=== PATIENT | male | born 1955 | race Caucasian/White ===

== ENCOUNTER 2020-09-08 23:10 | Observation (INO) | payer BC, MEDICARE, SELFPAY ==
--- NOTE | 2020-09-08 23:25 | ECG_ITS ---
APPROVED REPORT Exam: Resting ECG HR:68 bpm ECG Measurements Heart Rate 68 AXES AK 158 P 45 QRSd 94 QRS 4 QT 390 T 67 QTc 414 Conclusion Normal sinus rhythm Normal ECG Electronically signed by : Torsten Torres, 09/09/2020 07:07:59
[2020-09-08 23:26] VITALS: BP 238/124; PULSE 66; RESP 16; TEMP 36.6; O2SAT 97; BMI 37.2
--- NOTE | 2020-09-08 23:33 | XR_ITS ---
PROCEDURE: XR CHEST PORTABLE CLINICAL HISTORY: shoulder pain Chest pain COMPARISON: CR CXR CHEST(2 VIEWS-NOT PORTABLE) from 05/23/2017 FINDINGS: The cardiomediastinal silhouette and pulmonary vascularity are within normal limits. The lungs are clear without infiltrates, suspicious nodules, or pleural effusions. There is a small sclerotic focus in the left humeral neck and may be due to a bone island. IMPRESSION: No acute findings. Dictated by: Doroteo Charles MD 09/09/2020 06:33 Doroteo Charles MD in [place] 09/09/2020 06:33
[2020-09-08 23:46] LABS: Basophils % 0.5 % (0.1-2.0); Eosinophils # 0.1 K/mm3 (0.0-0.4); Eosinophils % 1.9 % (0.1-12.0); Hematocrit 46.7 % (42.0-52.0); Hemoglobin 15.7 g/dL (14.1-18.0); Lymphocytes # 2.4 K/mm3 (0.7-4.5); Lymphocytes % 31.5 % (10-50); Mean Corpuscular HGB Conc 33.7 g/dL (31.8-35.4); Mean Corpuscular Hemoglobin 31.2 pg (27.0-31.2); Mean Corpuscular Volume 92.6 fl (80-94); Mean Platelet Volume 7.9 fl (7.4-10.4); Monocytes # 0.4 K/mm3 (0.1-1.0); Monocytes % 5.8 % (1.7-9.3); Neutrophils # 4.6 K/mm3 (1.8-7.8); Neutrophils % 60.3 % (37.0-80.0); Platelet Count 178 K/mm3 (142-424); Red Blood Count 5.04 M/mm3 (4.60-6.20); Red Cell Distribution Width 13.5 % (11.5-17.5); White Blood Count 7.6 K/mm3 (4.8-10.8)
[2020-09-08 23:49] LABS: Chloride 103 mmol/L (98-107); Potassium 4.5 mmoL/L (3.5-5.1); Sodium 141 mmol/L (136-145)
[2020-09-08 23:51] LABS: Bilirubin,Unconjugated 0.3 mg/dL (0.0-1.1); Blood Urea Nitrogen 37 mg/dl (9-20); Creatinine Clearance Estimated 102 mL/min (50-200); Estimated Glomerular Filt Rate 67 ml/min (>60); GFR (African American) 81 ML/MIN (>60)
[2020-09-08 23:52] LABS: Alanine Aminotransferase 56 U/L (12-78); Albumin Level 4.7 g/dl (3.5-5.0); Alkaline Phosphatase 108 U/L (38-126); Anion Gap 13.5 mEq/L (5-15); Aspartate Amino Transferase 39 U/L (17-59); Bilirubin,Direct 0.3 mg/dl (0.0-0.4); Bilirubin,Indirect 0.3 mg/dL (0.0-0.9); Bilirubin,Total 0.6 mg/dl (0.2-1.3); Calcium 9.4 mg/dl (8.4-10.2); Carbon Dioxide 29 mmol/L (22.0-30.0); Glucose 170 mg/dl (74-100); Total Protein,Serum 7.9 g/dl (6.3-8.2)
[2020-09-09] VITALS (12 sets, daily range): BP systolic 128–211; BP diastolic 56–118; PULSE 65–77; RESP 14–19; TEMP 36.6–36.8; O2SAT 94–99; BMI 37.3
[2020-09-09 00:01] LABS: NT Pro Brain Natriuretic Pep. 50.8 pg/mL (0-125)
[2020-09-09 00:07] LABS: Troponin I < 0.01 ng/ml (0.00-0.034)
[2020-09-09 00:10] LABS: Free T4 (Free Thyroxine) 1.24 ng/dl (0.78-2.19)
[2020-09-09 00:11] LABS: Coronavirus 19 IgG Antibody Positive (Negative); Coronavirus 19 IgM Antibody Negative (Negative)
[2020-09-09 00:35] LABS: Amylase 63 U/L (30-110)
[2020-09-09 00:36] LABS: Lipase 47 U/L (23-300)
[2020-09-09 00:41] LABS: C-Reactive Protein 1.1 mg/L (0-4)
[2020-09-09 00:43] LABS: Erythrocyte Sedimentation Rate 14 mm/hr (0-20)
--- NOTE | 2020-09-09 01:00 | HMH.EDCP ---
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 The time I documented below is in addition to time spent performing reported procedures but includes the following listed in this critical care notation. Medical Decision Making - Medical Records Medical records reviewed: Yes: I reviewed the patient's medical records. - Ted Inquiry Pt receiving controlled substance: No Vital Signs: 09/08/20 23:26 09/09/20 00:01 09/09/20 00:11 Temperature 97.8 F Temperature Source Oral Pulse Rate [Right Brachial] 66 66 70 Respiratory Rate 16 17 16 Blood Pressure [Right Arm] 238/124 H 195/101 H 176/95 H Blood Pressure Mean [Right Arm] 162 132 122 Blood Pressure Source [Right Arm] Manual Cuff/ Auscultation Automatic Cuff Blood Pressure Position [Right Arm] Sitting Sitting Sitting 02 Sat by Pulse Oximetry 97 96 94 L Oxygen Delivery Method Room Air Room Air Room Air 09/09/20 00:30 09/09/20 00:45 09/09/20 01:03 Temperature Temperature Source Pulse Rate [Right Brachial] 67 72 68 Respiratory Rate 17 17 16 Blood Pressure [Right Arm] 211/118 H 187/112 H 181/95 H Blood Pressure Mean [Right Arm] 149 137 123 Blood Pressure Source [Right Arm] Automatic Cuff Blood Pressure Position [Right Arm] Sitting Sitting Sitting 02 Sat by Pulse Oximetry 95 96 95 Oxygen Delivery Method Room Air Room Air Room Air 09/09/20 01:30 Temperature Temperature Source Pulse Rate [Right Brachial] 70 Respiratory Rate 14 Blood Pressure [Right Arm] 152/89 H Blood Pressure Mean [Right Arm] 110 Blood Pressure Source [Right Arm] Automatic Cuff Blood Pressure Position [Right Arm] Sitting 02 Sat by Pulse Oximetry 98 Oxygen Delivery Method Room Air - Lab Data Lab results reviewed: Yes: I reviewed the patient's lab results. Lab Results 09/08/20 23:30: WBC 7.6, RBC 5.04, Hgb 15.7, Hct 46.7, MCV 92.6, MCH 31.2, MCHC 33.7, RDW 13.5, Plt Count 178, MPV 7.9, Neut % (Auto) 60.3, Lymph % (Auto) 31.5, [place] % (Auto) 5.8, Eos % (Auto) 1.9, Baso % (Auto) 0.5, Neut # (Auto) 4.6, Lymph # (Auto) 2.4, [place] # (Auto) 0.4, Eos # (Auto) 0.1, Baso # (Auto) 0.0 09/08/20 23:30: Sodium 141, Potassium 4.5, Chloride 103, Carbon Dioxide 29, Anion Gap 13.5, BUN 37 H, Creatinine 1.10, Estimated Creat Clear 102, Estimated GFR 67, Est GFR ( Amer) 81, Glucose 170 H, Calcium 9.4, Total Bilirubin 0.6, Direct Bilirubin 0.3, Conjugated Bilirubin 0.0, Indirect Bilirubin 0.3, Unconjugated Bilirubin 0.3, AST 39, ALT 56, Alkaline Phosphatase 108, Troponin I < 0.01, Total Protein 7.9, Albumin 4.7, TSH 2.20 09/08/20 23:30: Free T4 1.24 09/08/20 23:30: SARS-CoV-2 IgG Ab (Rapid) Positive A, SARS-CoV-2 IgM Ab (Rapid) Negative 09/08/20 23:30: NT-Pro-B Natriuret Pep 50.8 09/09/20 00:00: ESR 14 09/09/20 00:00: C-Reactive Protein 1.1, Amylase 63 09/09/20 00:00: Lipase 47 Result diagrams: 09/08/20 23:30 09/08/20 23:30 Orders (Tests/Meds): ED MEDICATIONS Generic Name Dose Route Start Last Admin Trade Name Freq PRN Reason Stop Dose Admin Sodium Chloride 1,000 mls @ 999 mls/hr 09/08/20 23:45 09/08/20 23:54 Sod Chlor 0.9% 1000ml Bag IV 09/09/20 00:45 999 mls/hr .Q1H1M JOHN Administration Discontinued Medications Generic Name Dose Route Sta
--- NOTE | 2020-09-09 01:01 | ECG_ITS ---
APPROVED REPORT Exam: Resting ECG HR:65 bpm ECG Measurements Heart Rate 65 AXES PA 164 P 81 QRSd 88 QRS -10 QT 396 T 66 QTc 411 Conclusion Normal sinus rhythm Minimal voltage criteria for LVH, may be normal variant Borderline ECG Electronically signed by : Torsten Torres, 09/09/2020 07:07:52
--- NOTE | 2020-09-09 01:09 | PC.NURSE ---
paged dr koenig on-call for aimee. spoke with jade bartlett.
--- NOTE | 2020-09-09 01:09 | PC.NURSE ---
call placed to liberty
--- NOTE | 2020-09-09 01:21 | PC.NURSE ---
paged dr gaspar
--- NOTE | 2020-09-09 02:39 | PC.NURSE ---
Addendum entered by Cece Hunt CNA 09/09/20 03:14: CORRECTION ARRIVAL TIME TO FLOOR WAS [id number] Original Note: PT ARRIVED TO THE FLOOR VIA W/C FROM ED WITH STAFF AT 0287
[2020-09-09 03:41] LABS: Troponin I < 0.01 ng/ml (0.00-0.034)
[2020-09-09 06:25] LABS: Basophils % 0.4 % (0.1-2.0); Eosinophils # 0.2 K/mm3 (0.0-0.4); Eosinophils % 1.9 % (0.1-12.0); Hematocrit 43.4 % (42.0-52.0); Hemoglobin 14.4 g/dL (14.1-18.0); Lymphocytes # 1.8 K/mm3 (0.7-4.5); Lymphocytes % 22.5 % (10-50); Mean Corpuscular HGB Conc 33.3 g/dL (31.8-35.4); Mean Corpuscular Hemoglobin 30.9 pg (27.0-31.2); Mean Corpuscular Volume 92.8 fl (80-94); Mean Platelet Volume 8.1 fl (7.4-10.4); Monocytes # 0.5 K/mm3 (0.1-1.0); Monocytes % 6.2 % (1.7-9.3); Neutrophils # 5.6 K/mm3 (1.8-7.8); Platelet Count 178 K/mm3 (142-424); Red Blood Count 4.67 M/mm3 (4.60-6.20); Red Cell Distribution Width 13.4 % (11.5-17.5)
[2020-09-09 06:37] LABS: Magnesium 1.8 mg/dl (1.6-2.3)
[2020-09-09 07:03] LABS: Troponin I < 0.01 ng/ml (0.00-0.034)
--- NOTE | 2020-09-09 08:00 | CA_ITS ---
APPROVED REPORT EXAM: Comprehensive 2D, Doppler, and color-flow Echocardiogram Ict Support And Test Engineers: Angelia Martini CRT Ht: 5 ft 8 in Wt: 245lbs BSA: 2.23 BP: 152/89 mmHg Indications: Chest Pain, Diabetes, Hypertension/HDD, STENT 2016 2D Dimensions LVOT 1.99 cm (M/F) 1.5-2.5 M-Mode Dimensions RVDd 3.00 cm (0.9-2.6) LA Diam 3.85 cm (1.9-4.0) LVDd 4.44 cm (3.5-5.7) Ao Diam 3.89 cm (2.0-3.7) LVDs 3.40 cm (3.5-5.7) IVSd 1.76 cm (0.6-1.1) PWd 1.24 cm (0.6-1.1) EF (Teich) 47.10% FS 23.40% EDV (Teich) 89.60 mL ESV (Teich) 47.40 mL LV Diastology E Decel Time 220.00 (160-240 msec) E/A Ratio 0.93 MED E' 6.50 (< 7 cm/sec) MED A' 8.00 cm/s E'/MED E' Ratio 10.51 (>14) LAT E' 10.00 (<10 cm/sec) LAT A' 10.00 cm/s E/LAT E' Ratio 6.83 (>14) Aortic Valve AI PHT 444.00 ms AO Peak GR. 6.30 mmHg Mitral Valve MV A Velocity 74.00 (40-130 cm/s) E/A Ratio 0.93 MV Decel. Time 220.00 (160-240 ms) Pulmonary Valve PV Peak Velocity 108.00 (50-150 cm/s) Tricuspid Valve TR P. Velocity 225.00 cm/s RAP Estimate 10.00 mmHg RVSP 30.20 mmHg Left Ventricle Left atrium is mildly enlarged, left ventricle is normal size, mild concentric left ventricular hypertrophy, visually estimated ejection fraction 55% with no regional wall motion abnormality, grade 1 diastolic dysfunction seen without tissue Doppler evidence of raise left atrial pressure. Right Ventricle Right atrium and right ventricle are normal size and contractility. Aortic Valve Aortic valve is minimally thickened and fibrosed, there is no aortic stenosis, there is trace aortic insufficiency. Mitral Valve Mitral valve grossly normal, there is mild mitral regurgitation. Tricuspid Valve Tricuspid valve is grossly normal, there is trace tricuspid regurgitation, tricuspid regurgitation jet velocity is inadequate for calculation of the right ventricular systolic pressure. Pulmonic Valve Pulmonic valve is poorly visualized. Great Vessels Aortic root is normal size. Pericardium No significant pericardial effusion noted. Conclusion 1. Mildly enlarged left atrium, normal left ventricular size, mild concentric left ventricular hypertrophy, visually estimated ejection fraction 55% with no regional wall motion abnormality, grade 1 diastolic dysfunction seen without tissue Doppler evidence of raise left atrial pressure. 2. Thickened and calcified aortic valve without aortic stenosis, there is trace aortic insufficiency. 3. Trace mitral and tricuspid regurgitation. 4. No significant pericardial effusion noted. Electronically signed by : Luke Moya, 09/09/2020 20:47:39
--- NOTE | 2020-09-09 08:01 | P.CONPHA_ITS ---
[facility] Pharmacy VTE Monitoring - Patient Demographics Admission date: 09/09/20 Report Date: 09/09/20 Time: 08:01 Allergies/Adverse Reactions: Patient Allergies No Known Allergies Allergy (Verified 09/06/19 12:17) Height: 1.73 m Weight: 111.272 kg Patient Problems: Current Active Problems Angina at rest (Acute) Hypertensive urgency (Acute) Obesity (BMI 30-39.9) (Acute) Diabetes mellitus (Acute) - VTE Risk Labs: VTE Related Lab Results Hgb 14.4 g/dL (14.1-18.0) 09/09/20 05:45 Hct 43.4 % (42.0-52.0) 09/09/20 05:45 Plt Count 178 K/mm3 (142-424) 09/09/20 05:45 BUN 37 mg/dl (9-20) H 09/08/20 23:30 Creatinine 1.10 mg/dl (0.66-1.25) 09/08/20 23:30 Estimated Creat Clear 102 mL/min (50-200) 09/08/20 23:30 Was VTE Risk Assessment Performed: Yes VTE Score: 1 VTE Risk Level: Very Low Risk Clinical Trial Participant: No - Prophylaxis VTE Prophylaxis Ordered?: Yes Types of VTE Prophylaxis: TEDS Knee High
--- NOTE | 2020-09-09 08:04 | HMH.PHAINT ---
home medication list confirmed using list from home pharmacy
--- NOTE | 2020-09-09 08:59 | HMH.CNCARD ---
History of Present Illness Consult date: 09/09/20 Requesting physician: Elías Ramirez Consult reason: chest pain Chief complaint: left shoulder pain Additional Medical History:: 1. Angina at rest (09/09/20) a. Troponins negative b. Complains of left shoulder pain 2. Diabetes. a. Controlled 3. Hypertension a. Controlled 4. Coronary artery disease a. Stents placed by Dr. Ramirez in 2018 at [place] 5. Hyperlipidemia a. Patient is on a statin and and managed by PCP 6. Knee replacement a. 2018 History of present illness: 65-year-old male admitted to [facility] on 09/09/20 with angina at rest. Patient arrived in the emergency room around 1030 last evening complaining of left shoulder pain radiating down to the left elbow. Patient stated the left shoulder pain was just increasing when he was trying to rest last night. Patient stated after he received morphine for his pain, he was feeling much better. Patient denies chest pain, tightness or pressure. Shortness of breath with exertion. 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 Patient denies increased swelling of the lower extremities. Patient denies tobacco use. Patient admits to social drinking. Patient has history of diabetes. Patient states his diabetes have been controlled. History of hypertension which is controlled. History of hyperlipidemia which is controlled by statin. Patient does have history of coronary artery disease. Patient states last stenting was in [address] Ramirez in [place] in [facility]. States he has not seen Dr. Ramirez since 2018. Initial ED work-up was performed. Initial EKG normal sinus rhythm with a heart rate of 65 bpm. Serial troponins were negative. Lab was unremarkable. Chest x-ray showed no acute findings. Preliminary echocardiogram was performed this morning. Revealed LV greater than 50% with mild mitral regurgitation mild aortic valve regurgitation, mild TR. Discussed plan of care with Dr. Kan and Dr. Ramirez. Patient is feeling fine and states he would rather go home. Will obtain GXT Myoview stress test on an outpatient basis and have patient follow-up in 1 week. Continue home medications. Management of diabetes deferred to PCP. Management of hyperlipidemia deferred to PCP. Instructed patient to return to cardiac clinic if signs and symptoms develop or persist. Patient verbalized understanding. Thank you for allowing cardiology participate in the care of this patient. [facility] History I have reviewed the patient's past medical history: Yes Medical History: Reports:: Diabetes Mellitus Type 2, Hyperlipidemia, Hypertension *Have you ever received a pneumonia vaccine?: No *Have you received a flu vaccine this season?: No Other Medical History: Reports: Arthritis Laterality Cases: Right: Total Knee Replacement Other Surgeries: Yes: Cardiac Catheterization Fractures: Yes (leg) - *Social History Last grade of school completed: High school graduate Alcohol Intake: current Alcohol Intake Frequency:: holidays/special occasions only *Occupational Status:: employed *Travel in the last 8 weeks: None Family Hx:: Heart Attack Meds Home Medications Medication Instructions Recorded Confirmed Type Atorvastatin Calcium [Lipitor 80mg 80 mg PO DAILY 09/06/19 09/09/20 History Tablet] Metformin HCl 500 mg PO DAILY 09/06/19 09/09/20 History Metoprolol Tartrate [Lopressor 12.5 mg PO BID 09/06/19 09/09/20 History 25mg tablet] lisinopriL [Lisinopril 20mg Tab] 20 mg PO DAILY 09/06/19 09/08/20 History Acetaminophen [Tylenol 500mg 1,000 mg PO HS 09/09/20 09/09/20 History tablet] Aspirin [Aspirin 81mg chewable 81 mg PO DAILY 09/09/20 09/09/20 History tab] Celecoxib [Celebrex 200mg cap] 200 mg PO DAILY #30 cap 09/09/20 Rx Ergocalciferol (Vitamin D2) 50,000 units PO WEEKLY 09/09/20 09/09/20 History [Drisdol 50,000 units (1.25mg)
--- NOTE | 2020-09-09 09:48 | HMH.HPDC ---
General - General Admission date:: 09/09/20 Discharge date: 09/09/20 *Admission Date: 09/09/20 *Chief complaint: Left shoulder pain *History of present illness: Mr. Butler is a 65-year-old male patient with a history of coronary artery disease, hypertension, hyperlipidemia, and osteoarthritis who presented to the emergency room after persistent left shoulder discomfort radiating down to the upper arm. He states he has had this discomfort for about a week but it became worse the last 3 days. Last night was significantly worse and thus he presented to the ER He denies associated shortness of breath, diaphoresis, nausea, and radiation. He states the pain is just pain. 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 He notices it mostly at night at rest. In the emergency room initial blood pressure was 238/124 and decrease to 152/89 after pain resolution and receiving clonidine. He also received a liter of IV fluid bolus and was given aspirin, clonidine 0.1 mg, Ketorolac 30 mg IV and nitroglycerin. CBC was normal. Blood chemistries revealed normal electrolytes with a BUN of 31 and creatinine of 1.1. Blood sugar was 170. Liver function studies were normal. Troponin I was normal x2. Chest x-ray revealed no acute findings. He has had an echo with pending results. Patient did not sleep during the night and arrived to the room this morning. He states his left shoulder has minimal discomfort. He denies shortness of breath. [facility] History Medical History: Reports:: Coronary Artery Disease, Diabetes Mellitus Type 2, Hyperlipidemia, Hypertension *Have you ever received a pneumonia vaccine?: No *Have you received a flu vaccine this season?: No Other Medical History: Reports: Arthritis Laterality Cases: Right: Total Knee Replacement Other Surgeries: Yes: Cardiac Catheterization, Coronary Stent Fractures: Yes (leg) - *Social History Last grade of school completed: High school graduate Alcohol Intake: current Alcohol Intake Frequency:: holidays/special occasions only *Occupational Status:: employed Household Members: spouse *Travel in the last 8 weeks: None Family Hx:: Heart Attack Review of Systems - Constitutional Denies headache(s), Denies weakness - Eyes Denies change in vision - ENT Denies ear pain, Denies post nasal drip, Denies sore throat - *Cardiovascular Denies chest pain, Denies chest pain with activity, Denies excessive sweating, Denies shortness of breath, Denies irregular heart rhythm - *Respiratory Denies cough, Denies shortness of breath - *Gastrointestinal Denies abdominal pain, Denies constipation, Denies heartburn, Denies loose stools, Denies nausea, Denies vomiting - *Genitourinary Denies difficulty urinating - *Musculoskeletal Reports joint pain, Denies abnormal walking, Denies back pain, Denies limited joint movement, Denies body aches Comments: Left shoulder pain. Nontender to palpation. No pain with movement/range of motion. - *Neurologic Denies abnormal walking, Denies dizziness, Denies headache(s), Denies seizure-like activity Exam Vital signs and Labs for Last 24 Hours: Temp Pulse Resp BP Pulse Ox 98.3 F 70 18 128/72 98 09/09/20 08:00 09/09/20 08:00 09/09/20 08:00 09/09/20 08:00 09/09/20 08:00 Laboratory Results - last 24 hr 09/08/20 23:30: WBC 7.6, RBC 5.04, Hgb 15.7, Hct 46.7, MCV 92.6, MCH 31.2, MCHC 33.7, RDW 13.5, Plt Count 178, MPV 7.9, Neut % (Auto) 60.3, Lymph % (Auto) 31.5, [place] % (Auto) 5.8, Eos % (Auto) 1.9, Baso % (Auto) 0.5, Neut # (Auto) 4.6, Lymph # (Auto) 2.4, [place] # (Auto) 0.4, Eos # (Auto) 0.1, Baso # (Auto) 0.0 09/08/20 23:30: Sodium 141, Potassium 4.5, Chloride 103, Carbon Dioxide 29, Anion Gap 13.5, BUN 37 H, Creatinine 1.10, Estimated Creat Clear 102, Estimated GFR 67, Est GFR ( Amer) 81, Glucose 170 H, Calcium 9.4, Total Bilirubin 0.6, Direct Bilirubin 0.3, Conjugated Bilirubin 0.0, Indirect Bilirubin 0.3, Unconjugate
[2020-09-09 12:35] LABS: POC Glucose,Bedside 131 (70-110)
== END 2020-09-09 10:50 | disposition home or self-care (01) ==
LOC: ER 09-09 01:38 → 2ND 09-09 02:44
PROVIDERS: Admitting Provider Family Medicine; Emergency Provider Emergency Medicine; PCP Family Medicine; Visit Provider Family Medicine
DX: I16.0 Hypertensive urgency (principal); I10 Essential (primary) hypertension; I51.0 Cardiac septal defect, acquired; Z95.5 Presence of coronary angioplasty implant and graft; E11.9 Type 2 diabetes mellitus without complications; Z79.899 Other long term (current) drug therapy; Z79.84 Long term (current) use of oral hypoglycemic drugs; Z79.82 Long term (current) use of aspirin
CPT/HCPCS: 36415; 71045; 80048; 80076; 82150; 82962; 83690; 83735; 83880; 84439; 84443; 84484; 85025; 85651; 86140; 86328; 93005; 93306; 96365; 96375; 99284; G0378

== ENCOUNTER → 2020-09-22 06:51 | Outpatient (CLI) | payer BC, SELFPAY ==
--- NOTE | 2020-09-22 06:52 | NM_ITS ---
APPROVED REPORT Exam: Nuclear Stress Test Indication: Chest pain, CAD, HTN, DM, High cholesterol, Family history Patient Location: Outpatient Stress Tech: Shwetha Diez SC Tech:Pallavi Davalos, ARRT, RT (R)(N) Ht: 5 ft 8 in Wt: 240 lbs HR: 62 bpm BP: 153/80 mmHg BSA: 2.21 m2 BMI: 36.4 History: Chest pain, CAD, HTN, DM, High cholesterol, Family history Procedure: Patient received a 0.4 mg of intravenous Lexiscan, resting heart rate 62 bpm, resting blood pressure 153/80 mmHg, with Lexiscan maximum heart rate achived was 89 bpm which is Less than 85 % of the maximum predicted heart rate and blood pressure was 126/73 mmHg. With Lexiscan, patient denied any complaint of chest pain. Electrocardiogram Resting electrocardiogram shows sinus rhythm nonspecific ST-T changes, with Lexiscan less than 1.[address] segment depression noted from the baseline EKG. The EKG portion of the Lexiscan is nondiagnostic. Cardiac Stress and Resting SPECT Images: Cardiac Stress and Resting SPECT images were obtained using technetium 99m Myoview 29.4 mCi stress and 10.42 mCi at rest. Gated SPECT for analysis of segmental wall motion and calculation of the ejection fraction also done. Cardiac stress and resting SPECT images show uniform myocardial activity without segmental perfusion abnormality, computer derived ejection fraction 53% with no regional wall motion abnormality, right ventricle is mildly enlarged with normal contractility. Conclusion: 1. The EKG portion of the Lexiscan is nondiagnostic. 2. No scintigraphic evidence of reversible ischemia seen, computer derived ejection fraction is 53% with no regional wall motion abnormality, right ventricle is mildly enlarged with normal contractility. 3. Normal Lexiscan Myoview study. Electronically signed by : Luke Moya, 09/22/2020 22:15:57
--- NOTE | 2020-09-22 06:52 | CA_ITS ---
APPROVED REPORT Exam: Pharmacologic Technologist: Shwetha Diez Ht: 5 ft 8 in Wt: 240 lbs BSA: 2.21 m2 HR: 62 bpm BP: 153/80 mmHg Indications: Chest pain Medical History Medications: Lisinopril,,,,, Aspirin,,,,, Metoprolol,,,,, Metformin,,,,, Atorvastatin,,,,, Acetaminophen,,,,, Celecoxib,,,,, Vitamin D2,,,,, Stress Test Details Test: LEXISCAN HR Resting HR: 63 bpm Max Heart Rate (APMHR): 153 bpm Max HR Achieved: 93 bpm Target HR (85% APMHR): 130 bpm % of APMHR: 60 Recovery HR: 75 bpm BP Resting BP: 153.0/80.0 mmHg Max BP: 153.0/80.0 mmHg Recovery BP: 125.0/80.0 mmHg ECG Resting ECG: Sinus rhythm Clinical Exercise duration: 04:00 min Highest Stage Achieved: Stress ECG Conclusion Lexiscan portion completed. Patient complained of shortness of breath during peak infusion. Symptoms: Shortness of breath during peak infusion, resolved in recovery. No chest pain. Arrhythmias/Ectopy: No ectopy ST-T Changes: less than 1.[address] depression noted. Conclusion: Images to follow. Test Summary . . Cardiolite injected . . . Stop exercise at 04:00 . . . . Electronically signed by : Luke Moya, 09/22/2020 22:00:45
--- NOTE | 2020-09-22 09:09 | HMH.ITSHM ---
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 []LISINOPRIL METOPROLOL METFORMIN VITAMIN D2 ATORVASTATIN ASA
== END ==
PROVIDERS: PCP Family Medicine; Visit Provider Family Medicine
DX: R07.9 Chest pain, unspecified (principal)
CPT/HCPCS: 78452; 93017; A9502; J2785

== ENCOUNTER 2020-10-23 19:09 | Emergency (ER) | payer BC, SELFPAY ==
--- NOTE | 2020-10-23 19:17 | XR_ITS ---
PROCEDURE: XR CHEST PORTABLE CLINICAL HISTORY: htn Hypertension COMPARISON: CR CXR CHEST(2 VIEWS-NOT PORTABLE) from 05/23/2017 CR XR CHEST PORTABLE from 09/08/2020 FINDINGS: The cardiomediastinal silhouette and pulmonary vascularity are within normal limits. The lungs are clear without infiltrates, suspicious nodules, or pleural effusions. Sclerotic focus involves the left proximal humerus and may be due to bone island IMPRESSION: No acute findings. Dictated by: Doroteo Charles MD 10/24/2020 06:02 Doroteo Charles MD in [place] 10/24/2020 06:02
--- NOTE | 2020-10-23 19:17 | ECG_ITS ---
APPROVED REPORT Exam: Resting ECG HR:62 bpm ECG Measurements Heart Rate 62 AXES WV 170 P 49 QRSd 106 QRS 14 QT 390 T 34 QTc 395 Conclusion Sinus rhythm with premature atrial complexes Otherwise normal ECG Electronically signed by : Torsten Torres, 10/24/2020 08:52:24
[2020-10-23 19:28] VITALS: BP 203/103; PULSE 63; RESP 14; TEMP 36.8; O2SAT 98; BMI 35.7
--- NOTE | 2020-10-23 19:28 | HMH.EDGENADL ---
ED Disposition Clinical Impression: Elevated blood pressure reading Disposition: Home, Self-Care Condition on Discharge: Good Additional Instructions: You have been evaluated for elevated blood pressure reading. You have been evaluated for elevated blood pressure reading. Please start taking hydrochlorothiazide. Follow salt restriction. Try to exercise every day. Follow-up with your primary care doctor in 1 to 2 days for symptom recheck. Prescriptions: hydroCHLOROthiazide [HCTZ 12.5mg cap] 12.5 mg PO DAILY #30 cap Transmission Status: Pending to [facility] Referrals: Elías Ramirez MD [Primary Care Provider] - Time of Disposition: 21:05 - Critical Care Critical Care Time: No Attestation: On 10/23/20, the high probability of a clinically significant, sudden or life threatening deterioration of the following system(s) required my full and direct attention, intervention and personal management. The time I documented below is in addition to time spent performing reported procedures but includes the following listed in this critical care notation. Medical Decision Making - Medical Records Medical records reviewed: Yes: I reviewed the patient's medical records. - Ted Inquiry Pt receiving controlled substance: No Vital Signs: 10/23/20 19:28 Temperature 98.2 F Temperature Source Oral Pulse Rate [Right Brachial] 63 Respiratory Rate 14 Blood Pressure [Right Arm] 203/103 H Blood Pressure Mean [Right Arm] 136 Blood Pressure Source [Right Arm] Automatic Cuff Blood Pressure Position [Right Arm] Sitting 02 Sat by Pulse Oximetry 98 Oxygen Delivery Method Room Air - Lab Data Lab Results 10/23/20 19:25: WBC 6.9, RBC 4.92, Hgb 14.5, Hct 44.7, MCV 90.9, MCH 29.5, MCHC 32.5, RDW 12.9, Plt Count 209, MPV 7.7, Neut % (Auto) 52.2, Lymph % (Auto) 38.8, [place] % (Auto) 6.3, Eos % (Auto) 2.2, Baso % (Auto) 0.6, Neut # (Auto) 3.6, Lymph # (Auto) 2.7, [place] # (Auto) 0.4, Eos # (Auto) 0.2, Baso # (Auto) 0.0 10/23/20 19:25: Sodium 141, Potassium 4.2, Chloride 105, Carbon Dioxide 30, Anion Gap 10.2, BUN 27 H, Creatinine 0.80, Estimated Creat Clear 108, Estimated GFR 96, Est GFR ( Amer) 117, Glucose 157 H, Calcium 9.5, Total Bilirubin 0.5, AST 39, ALT 58, Alkaline Phosphatase 93, Troponin I < 0.01, Total Protein 7.8, Albumin 4.7, Globulin 3.1, Albumin/Globulin Ratio 1.5 10/23/20 19:28: POC Glucose 148 H 10/23/20 19:30: Urine Color Yellow, Urine Appearance Clear, Urine pH 6.0, Ur Specific [place] 1.025, Urine Protein Negative, Urine Glucose (UA) 1+, Urine Ketones Negative, Urine Blood Negative, Urine Nitrate Negative, Urine Bilirubin Negative, Urine Urobilinogen 1.0, Ur Leukocyte Esterase Negative, Urine RBC None, Urine WBC None, Ur Squamous Epith Cells None, Urine Bacteria None Result diagrams: 10/23/20 19:25 10/23/20 19:25 Orders (Tests/Meds): ED MEDICATIONS Discontinued Medications Generic Name Dose Route Start Last Admin Trade Name Sandipq PRN Reason Stop Dose Admin Aspirin 243 mg 10/23/20 19:47 10/23/20 19:50 Aspirin 81mg Chewable Tablet PO 10/23/20 19:48 243 mg ONCE ONE Administration Iopamidol 70 ml 10/23/20 20:35 10/23/20 20:36 Iopamidol-370 (76%);100ml Bottle IV 10/23/20 20:36 70 ml ONCE ONE Administration Sodium Chloride 50 ml 10/23/20 20:35 10/23/20 20:36 0.9 % Sodium Chloride 50 Ml Vial IV 10/23/20 20:36 50 ml ONCE ONE Administration Sodium Chloride 10 ml 10/23/20 20:35 10/23/20 20:36 Sodium Chloride 0.9% 10ml Syr (Rad Only) IV 10/23/20 20:36 10 ml ONCE ONE Administration ORDERS Category Date Time Status CTA Chest [CT angio chest] Stat Cat Scan 10/23/20 19:35 Taken CXR --portable [XR chest portable] Stat Exams 10/23/20 19:17 Taken Troponin I Q3H Lab 10/23/20 22:30 Ordered Troponin I Q3H Lab 10/24/20 01:30 Ordered EKG Request [ECG Request by /Nse] Stat Y 10/23/20 19:17 Ordered - ECG Data Tracing #1 Sinu
[2020-10-23 19:33] LABS: Basophils % 0.6 % (0.1-2.0); Eosinophils # 0.2 K/mm3 (0.0-0.4); Eosinophils % 2.2 % (0.1-12.0); Hematocrit 44.7 % (42.0-52.0); Hemoglobin 14.5 g/dL (14.1-18.0); Lymphocytes # 2.7 K/mm3 (0.7-4.5); Lymphocytes % 38.8 % (10-50); Mean Corpuscular HGB Conc 32.5 g/dL (31.8-35.4); Mean Corpuscular Hemoglobin 29.5 pg (27.0-31.2); Mean Corpuscular Volume 90.9 fl (80-94); Mean Platelet Volume 7.7 fl (7.4-10.4); Monocytes # 0.4 K/mm3 (0.1-1.0); Monocytes % 6.3 % (1.7-9.3); Neutrophils # 3.6 K/mm3 (1.8-7.8); Neutrophils % 52.2 % (37.0-80.0); Platelet Count 209 K/mm3 (142-424); Red Blood Count 4.92 M/mm3 (4.60-6.20); Red Cell Distribution Width 12.9 % (11.5-17.5); White Blood Count 6.9 K/mm3 (4.8-10.8)
--- NOTE | 2020-10-23 19:35 | CT_ITS ---
PROCEDURE: CT ANGIO CHEST CLINCIAL INDICATION: chest pain, to back, htn COMPARISON: No exams were available for comparison TECHNIQUE: IV Contrast: 70ML Isovue 370 Axial images obtained with sagittal and coronal reformats. All CT scans at the facility use one or more dose reduction, viz: automated exposure control, ma/kV adjustment per patient size (including targeted exams where dose is matched to indication, i.e. head), or iterative reconstruction technique. FINDINGS: HEART AND MEDIASTINAL STRUCTURES: No evidence of pulmonary embolus, aortic aneurysm, or aortic dissection. Coronary artery calcifications and/or stents noted. LUNGS AND PLEURAL SPACES: Motion artifact obscures fine detail. Calcified granuloma is present in the right upper lobe. BONY STRUCTURES: Ankylosis of the thoracic spine UPPER ABDOMEN: There is a small peripancreatic lymph node near the pancreatic head at 1.3 x 0.9 cm. ADDITIONAL FINDINGS: Gynecomastia IMPRESSION: No acute finding Dictated by: Doroteo Charles MD 10/24/2020 06:57 Doroteo Charles MD in [place] 10/24/2020 06:57
[2020-10-23 19:36] LABS: Microscopic, Urine URINE MICROSCOPIC (MICROSCOPIC)
[2020-10-23 19:37] LABS: POC Glucose,Bedside 148 (70-110)
[2020-10-23 19:41] LABS: Appearance,Urine CLEAR (Clear); Bilirubin,Urine Negative (Negative); Blood, Urine Negative (Negative); Color,Urine YELLOW (Yellow); Glucose,Urine (UA) 1+ (Negative); Ketones,Urine Negative (Negative); Leukocyte Esterase,Urine Negative (Negative); Nitrate,Urine Negative (Negative); Protein,Urine Negative (Negative); Specific Gravity, Urine 1.025 (1.005-1.030)
[2020-10-23 19:42] LABS: Chloride 105 mmol/L (98-107); Sodium 141 mmol/L (136-145)
[2020-10-23 19:43] LABS: Potassium 4.2 mmoL/L (3.5-5.1)
[2020-10-23 19:45] LABS: Alanine Aminotransferase 58 U/L (12-78); Albumin Level 4.7 g/dl (3.5-5.0); Albumin/Globulin Ratio 1.5 (1.1-1.8); Alkaline Phosphatase 93 U/L (38-126); Anion Gap 10.2 mEq/L (5-15); Aspartate Amino Transferase 39 U/L (17-59); Bilirubin,Total 0.5 mg/dl (0.2-1.3); Blood Urea Nitrogen 27 mg/dl (9-20); Carbon Dioxide 30 mmol/L (22.0-30.0); Creatinine Clearance Estimated 108 mL/min (50-200); Estimated Glomerular Filt Rate 96 ml/min (>60); GFR (African American) 117 ML/MIN (>60); Globulin 3.1 g/dL (1.3-3.2); Total Protein,Serum 7.8 g/dl (6.3-8.2)
[2020-10-23 19:46] LABS: Calcium 9.5 mg/dl (8.4-10.2); Glucose 157 mg/dl (74-100)
[2020-10-23 19:59] LABS: Troponin I < 0.01 ng/ml (0.00-0.034)
[2020-10-23 22:16] LABS: Troponin I < 0.01 ng/ml (0.00-0.034)
[2020-10-23 23:05] VITALS: BP 152/74; PULSE 82; RESP 18; TEMP 36.7; O2SAT 98
== END 2020-10-23 23:07 | disposition home or self-care (01) ==
PROVIDERS: Emergency Provider Emergency Medicine; PCP Family Medicine
DX: I16.0 Hypertensive urgency (principal); E78.5 Hyperlipidemia, unspecified; E11.65 Type 2 diabetes mellitus with hyperglycemia; I25.10 Atherosclerotic heart disease of native coronary artery without angina pectoris; Z79.899 Other long term (current) drug therapy
CPT/HCPCS: 71045; 71275; 80053; 81001; 82962; 84484; 85025; 93005; 99282; Q9967

== ENCOUNTER → 2021-05-18 09:22 | Outpatient (CLI) | payer BC, SELFPAY | PROVIDERS: PCP Family Medicine; Visit Provider Nurse Practitioner | DX: Z20.822 Contact with and (suspected) exposure to COVID-19 (principal) | CPT/HCPCS: C9803; U0003; U0005 ==

== ENCOUNTER 2021-05-22 14:37 | Outpatient (CLI) | payer BC, SELFPAY ==
[2021-05-22 14:47] VITALS: BMI 34.4
[2021-05-22 15:00] VITALS: BP 104/55; PULSE 79; RESP 18; O2SAT 99
[2021-05-22 15:03] LABS: Basophils # 0.1 K/mm3 (0-0.2); Basophils % 1.2 % (0.1-2.0); Eosinophils % 0.9 % (0.1-12.0); Hematocrit 44.4 % (42.0-52.0); Hemoglobin 15.6 g/dL (14.1-18.0); Lymphocytes # 1.8 K/mm3 (0.7-4.5); Lymphocytes % 37.4 % (10-50); Mean Corpuscular HGB Conc 35.1 g/dL (31.8-35.4); Mean Corpuscular Volume 91.2 fl (80-94); Mean Platelet Volume 8.2 fl (7.4-10.4); Monocytes # 0.3 K/mm3 (0.1-1.0); Monocytes % 6.9 % (1.7-9.3); Neutrophils # 2.6 K/mm3 (1.8-7.8); Neutrophils % 53.6 % (37.0-80.0); Platelet Count 281 K/mm3 (142-424); Red Blood Count 4.87 M/mm3 (4.60-6.20); Red Cell Distribution Width 13.7 % (11.5-17.5); White Blood Count 4.8 K/mm3 (4.8-10.8)
[2021-05-22 15:12] LABS: Alanine Aminotransferase 41 U/L (12-78); Albumin Level 4.4 g/dl (3.5-5.0); Albumin/Globulin Ratio 1.2 (1.1-1.8); Alkaline Phosphatase 71 U/L (38-126); Anion Gap 18.9 mEq/L (5-15); Aspartate Amino Transferase 37 U/L (17-59); Bilirubin,Total 0.8 mg/dl (0.2-1.3); Blood Urea Nitrogen 42 mg/dl (9-20); Calcium 9.4 mg/dl (8.4-10.2); Carbon Dioxide 24 mmol/L (22.0-30.0); Chloride 100 mmol/L (98-107); Creatinine Clearance Estimated 42 mL/min (50-200); Estimated Glomerular Filt Rate 26 ml/min (>60); GFR (African American) 31 ML/MIN (>60); Globulin 3.8 g/dL (1.3-3.2); Glucose 191 mg/dl (74-100); Potassium 3.9 mmoL/L (3.5-5.1); Sodium 139 mmol/L (136-145); Total Protein,Serum 8.2 g/dl (6.3-8.2)
[2021-05-22 16:00] VITALS: BP 113/66; PULSE 64; RESP 16
[2021-05-22 17:00] VITALS: BP 105/62; PULSE 62; RESP 18; TEMP 36.2
[2021-05-23 12:22] VITALS: BMI 35.6
== END 2021-05-22 17:05 | disposition home or self-care (01) ==
LOC: INF 14:38
PROVIDERS: PCP Family Medicine; Visit Provider Family Medicine
DX: K52.9 Noninfective gastroenteritis and colitis, unspecified (principal); E86.0 Dehydration
CPT/HCPCS: 80053; 85025; 96360; 96361; 96375; J2405

== ENCOUNTER 2021-05-23 11:32 | Outpatient (CLI) | payer BC, SELFPAY ==
[2021-05-23 12:36] VITALS: BMI 34.2
[2021-05-23 12:42] LABS: Anion Gap 13.6 mEq/L (5-15); Blood Urea Nitrogen 41 mg/dl (9-20); Carbon Dioxide 23 mmol/L (22.0-30.0); Chloride 102 mmol/L (98-107); Creatinine Clearance Estimated 65 mL/min (50-200); Estimated Glomerular Filt Rate 43 ml/min (>60); GFR (African American) 52 ML/MIN (>60); Glucose 170 mg/dl (74-100); Hematocrit 42.7 % (42.0-52.0); Hemoglobin 14.8 g/dL (14.1-18.0); Mean Corpuscular Volume 91.1 fl (80-94); Potassium 3.6 mmoL/L (3.5-5.1); Red Blood Count 4.69 M/mm3 (4.60-6.20); Sodium 135 mmol/L (136-145); White Blood Count 5.4 K/mm3 (4.8-10.8)
[2021-05-23 12:43] LABS: Mean Corpuscular HGB Conc 34.6 g/dL (31.8-35.4); Mean Corpuscular Hemoglobin 31.6 pg (27.0-31.2); Red Cell Distribution Width 13.6 % (11.5-17.5)
[2021-05-23 12:44] LABS: Basophils # 0.1 K/mm3 (0-0.2); Basophils % 1.2 % (0.1-2.0); Eosinophils # 0.1 K/mm3 (0.0-0.4); Eosinophils % 1.7 % (0.1-12.0); Lymphocytes # 1.9 K/mm3 (0.7-4.5); Lymphocytes % 35.4 % (10-50); Mean Platelet Volume 8.1 fl (7.4-10.4); Monocytes # 0.4 K/mm3 (0.1-1.0); Monocytes % 6.5 % (1.7-9.3); Neutrophils % 55.2 % (37.0-80.0); Platelet Count 268 K/mm3 (142-424)
[2021-05-23 14:39] VITALS: BP 124/71; PULSE 67; RESP 16; O2SAT 100
[2021-05-23 14:51] LABS: Adenovirus F 40/41, stool Not Detected (NotDetected); Astrovirus Not Detected (NotDetected); Clostridium Difficile A/B, PCR Not Detected (NotDetected); Cryptosporidium Not Detected (NotDetected); Cyclospora Cayetanesis Not Detected (NotDetected); Entamoeba histolytica Not Detected (NotDetected); Enteroaggregative E coli Not Detected (NotDetected); Enteropathogenic E coli Not Detected (NotDetected); Enterotoxigenic E coli Not Detected (NotDetected); Giardia lamblia Not Detected (NotDetected); Norovirus Not Detected (NotDetected); Plesimonas Shigalloides, PCR Not Detected (NotDetected); Rotavirus A Not Detected (NotDetected); Sapovirus Not Detected (NotDetected); Shiga-like toxin E coli Not Detected (NotDetected); Shigella Enterovasive E coli Not Detected (NotDetected); Vibrio Cholerae Not Detected (NotDetected); Vibrio, PCR Not Detected (NotDetected); Yersinia Entercolitica, PCR Not Detected (NotDetected)
[2021-05-23 16:49] LABS: Campylobacter Detected (NotDetected)
[2021-05-23 16:50] LABS: Salmonella, PCR Detected (NotDetected)
== END 2021-05-23 14:43 | disposition home or self-care (01) ==
LOC: INF 11:32
PROVIDERS: PCP Family Medicine; Visit Provider Family Medicine
DX: K52.9 Noninfective gastroenteritis and colitis, unspecified (principal); N17.9 Acute kidney failure, unspecified; E86.0 Dehydration; A04.5 Campylobacter enteritis; A02.0 Salmonella enteritis
CPT/HCPCS: 80048; 85025; 87507; 96360; 96361; G0463; J2405

== ENCOUNTER 2021-10-12 14:13 | Emergency (ER) | payer BC, SELFPAY ==
[2021-10-12 14:30] VITALS: BP 125/74; PULSE 68; RESP 18; TEMP 36.8; O2SAT 98; BMI 35.4
--- NOTE | 2021-10-12 15:08 | HMH.EDUTC ---
[facility] [place] Clinical Impression: Toe problem Disposition: Home, Self-Care Condition on Discharge: Good Instructions: DI for Nail Avulsion Injury Additional Instructions: Go straight to Dr Joseph office for further treatment and evaluation Return if needed Straight to ER if any life threatening symptoms Referrals: Elías Ramirez MD [Primary Care Provider] - As needed Annika Beckham DPM [Staff Physician] - 10/12/21 3:38 pm Time of Disposition: 15:38 Medical Decision Making - Ted Inquiry Pt receiving controlled substance: No Ted was queried for this patient: No Vital Signs: 10/12/21 14:30 10/12/21 15:44 Temperature 98.2 F 98.2 F Temperature Source Oral Oral Pulse Rate 68 Pulse Rate [Right Radial] 68 Respiratory Rate 18 18 Blood Pressure 125/74 Blood Pressure [Right Arm] 125/74 Blood Pressure Mean [Right Arm] 91 Blood Pressure Source Automatic Cuff Blood Pressure Source [Right Arm] Automatic Cuff Blood Pressure Position Sitting Blood Pressure Position [Right Arm] Sitting 02 Sat by Pulse Oximetry 98 Oxygen Delivery Method Room Air Room Air - Physician Consults Physician Consulted: Dr Beckham Time: 15:35 Reason -: Podiatry Eval/Care Comment/Response: Spoke with Sujata in Dr Joseph office and she spoke with Dr Beckham and she advised to send patient to her office for further treatment and evaluation [facility] [place] - General Stated complaint: bleeding toenail Time Seen by Provider: 10/12/21 15:08 Mode of Arrival: Ambulatory Source of Information: Patient Limitations: No Limitations Description of Symptoms (Recalled from Triage Doc. by RN): Pulled toenail partially off this morning on the bottom of refriderator. He is diabetic and wants to get it checked out. This happened this morning at 4am. HEENT Symptoms (Recalled from RN notes): No Resp Symptoms (Recalled from RN notes): No Skin Symptoms (Recalled from RN notes): Yes (missing piece of toe nail) MS Symptoms (Recalled from RN notes): No Functional Status (Recalled from RN notes): n/a - History of Present Illness Provider Complaint: Patient states that he stubbed his toe on the fridge door about 4am this morning and thinks it about tore his right toenail off States that the door caught the tip of his toenail it feels like it is loose and has been bleeding under it ever since and sore to the touch States that he is a diabetic and was concerned with infection so he came in - Related Data Home Medications Medication Instructions Recorded Confirmed Atorvastatin Calcium [Lipitor 80mg 80 mg PO DAILY 09/06/19 10/12/21 Tablet*] Aspirin [Aspirin 81mg chewable 81 mg PO DAILY 09/09/20 10/12/21 tab] Ergocalciferol (Vitamin D2) 50,000 units PO WEEKLY 09/09/20 10/12/21 [Drisdol 50,000 units (1.25mg) capsule] Irbesartan/Hydrochlorothiazide 1 tab PO DAILY 05/22/21 10/12/21 [Irbesartan-Hctz 300-12.5 mg Tb] ibuprofen 800 mg tablet 800 mg PO tab 10/12/21 10/12/21 metformin 500 mg tablet,extended 500 mg PO tab 10/12/21 10/12/21 release 24 hr metoprolol succinate 200 mg 200 mg PO tab 10/12/21 10/12/21 tablet,extended release 24 hr Previous Rx's Medication Instructions Recorded mupirocin 2 % topical ointment 1 applic TOPICAL BID #15 g 10/12/21 Allergies Allergy/AdvReac Type Severity Reaction Status Date / Time No Known Allergies Allergy Verified 10/12/21 16:10 - Worker's Comp Is this a Worker's Comp case?: No Is this an [facility] Worker's Comp?: No Is this a Héctor Worker's Comp?: No H History - Hepatitis A Screen Drug use history?: No High risk sexual behaviors?: No History of sexually transmitted infection?: No Currently employed?: No Childcare worker?: No Do you have indoor plumbing?: Yes Do you have electricity?: Yes Attestation statement:: This patient has been screened for Hepatitis A risk factors. I have reviewed the patient's past medical history: Yes Medical History: Reports:: Coron
[2021-10-12 15:44] VITALS: BP 125/74; PULSE 68; RESP 18; TEMP 36.8; O2SAT 98
== END 2021-10-12 15:44 | disposition home or self-care (01) ==
PROVIDERS: Emergency Provider Nurse Practitioner; PCP Family Medicine
DX: S91.201A Unspecified open wound of right great toe with damage to nail, initial encounter (principal); W22.09XA Striking against other stationary object, initial encounter; Y92.010 Kitchen of single-family (private) house as the place of occurrence of the external cause; E11.9 Type 2 diabetes mellitus without complications
CPT/HCPCS: 99212; G0463

== ENCOUNTER 2024-05-04 13:42 | Outpatient (CLI) | payer MEDICARE, OTHER, SELFPAY ==
--- NOTE | 2024-05-04 13:45 | MR_ITS ---
FINAL REPORT CLINICAL HISTORY: LUMBAR PAIN. LEFT THIGH PAIN COMPARISON: None FINDINGS: Multiplanar MR imaging of the lumbar spine was performed without contrast. On the sagittal T2-weighted images, there is abnormal decreased signal throughout the lumbar discs. There is mild loss of height of the L3-4 and L4-5 discs. The vertebrae are of normal height. The vertebral alignment is normal. L1-2: There is no significant canal stenosis or neural foraminal narrowing. L2-3: A diffuse annular bulge is present with bilateral facet hypertrophy and mild to moderate bilateral neural foraminal narrowing. L3-4: A large annular bulge is present, with bilateral facet hypertrophy, moderate to severe canal stenosis, and moderate to severe bilateral neural foraminal narrowing. L4-5: A large annular bulge is present with bilateral facet hypertrophy, severe bilateral neural foraminal narrowing, and severe canal stenosis. This is best seen on image #19 of series 5. L5-S1: A diffuse bulge is present, with high-grade bilateral neural foraminal narrowing and endplate hypertrophy. There is a 1.3 cm focus of signal abnormality in the subcutaneous soft tissues at the L2 level, likely a small sebaceous cyst. IMPRESSION: Multilevel lumbar degenerative change, with multi level canal stenosis, most severe at the L4-5 level, and multilevel neural foraminal narrowing, most severe at the L4-5 and L5-S1 levels. Reviewed, Interpreted and Dictated by Godwin De La Rosa MD Transcribed by Alona Hernández Authenticated and . [facility]
== END 2024-05-04 23:59 | disposition home or self-care (01) ==
LOC: RAD 13:43
PROVIDERS: PCP Family Medicine; Visit Provider Physician Assistant
DX: M54.50 Low back pain, unspecified (principal)
CPT/HCPCS: 72148

== ENCOUNTER 2024-06-12 13:00 | Outpatient (RCR) | payer MEDICARE, OTHER, SELFPAY | END 2024-06-12 23:59 | disposition home or self-care (01) | LOC: PT 13:00 | PROVIDERS: Visit Provider Physician Assistant | DX: M51.16 Intervertebral disc disorders with radiculopathy, lumbar region (principal) | CPT/HCPCS: 97012; 97014; 97110; 97163; 97530; G0283 ==

== ENCOUNTER 2024-09-28 10:30 | Emergency (ER) | payer MEDICARE, SELFPAY ==
[2024-09-28 10:36] VITALS: BP 126/65; PULSE 63; RESP 22; O2SAT 97
[2024-09-28 10:40] VITALS: BP 126/65; PULSE 62; RESP 18; TEMP 36.7; O2SAT 97; BMI 34.2
[2024-09-28 10:45] VITALS: BP 126/65; PULSE 63; O2SAT 95
--- NOTE | 2024-09-28 10:47 | PC.NURSE ---
Dr. Varghese at bedside
--- NOTE | 2024-09-28 10:53 | HMH.EDGENADL ---
Discharge Plan Disposition Patient Disposition: Home, Self-Care Prescriptions Prescriptions: No Action atorvastatin 40 MG tablet 40 mg PO HS metoprolol succinate 200 MG tablet extended release 24 hr 200 mg PO DAILY metformin 500 MG tablet extended release 24 hr 500 mg PO BID ondansetron 4 MG tablet,disintegrating 4 mg PO DAILYP PRN (Reason: Nausea) Qty: 12 0RF Referrals Follow up/Referrals: Elías Ramirez MD [Primary Care Provider] - See instructions Omer Kan MD [Staff Physician] - See instructions Activity Restrictions/Add. Instructions Additional Instructions/Restrictions: At this time it was felt you are safe to be discharged home. If new or worsening symptoms please do not hesitate to return the emergency department. Please call and schedule appoint with cardiology as soon as you are able to help further assess the blood vessels in your lower extremities that may be a little bit too narrow. Please continue to follow-up with your spine surgeon as discussed as you have multiple degenerative changes in your back at L3/L4 and L4/L5 that are pressing on nerves where they exit your spine that talk to your legs. Clinical Impressions Clinical Impression: Peripheral vascular disease, Claudication, Degenerative disc disease, lumbar Print Language Print Language: [place] Discharge ED Provider: Tr Varghese General Adult HPI General Chief complaint: Weakness Stated complaint: weakness in legs, losing feeling Time Seen by Provider: 09/28/24 10:43 Mode of Arrival: Ambulatory Source of Information: Patient Limitations: No Limitations Description of Symptoms (Recalled from ER Triage Doc. by RN): pt reports BLE weakness and numbness that has gradually worsened over the last 10d. pt reports that he had an MRI of his back here 3-4mo ago. Then he received an injection in his back that improved his discomfort. History of Present Illness HPI narrative: Patient is a 69 year-old male with past medical history of non-insulin dependent diabetes, coronary artery disease, hypertension, previously uncontrolled, who presents the emergency department for evaluation of intermittent lower extremity weakness. History obtained by patient at bedside. Over the last few weeks he has noticed that when he ambulate the further distance he goes he intermittently feels his lower extremity has become weak left greater than right. [place] is at rest and he gets a start walking he is not able to ambulate without difficulty. As the walking goes on, it becomes painful. No trauma. He does have a history of intermittent chronic back pain. However, his back is not hurting at this time. He is due for a knee replacement on the left side. No new trauma. No incontinence. Related Data Home Medications ?Medication ?Instructions ?Recorded ?Confirmed atorvastatin 40 mg tablet 40 mg PO HS Cholesterol 04/18/21 09/28/24 metformin 500 mg tablet,extended 500 mg PO BID Diabetes 04/18/21 09/28/24 release 24 hr metoprolol succinate 200 mg 200 mg PO DAILY Hypertension 04/18/21 09/28/24 tablet,extended release 24 hr Previous Rx's ?Medication ?Instructions ?Recorded ondansetron 4 mg disintegrating 4 mg PO DAILYP PRN Nausea #12 tabs 05/18/21 tablet Allergies Allergy/AdvReac Type Severity Reaction Status Date / Time No Known Allergies Allergy Verified 09/28/24 10:45 [facility] Disclaimer: The information contained in this section may have been updated after the patient was seen, as this information can be updated by other users. Social History Smoking Status: Never smoker alcohol intake: never current occupational status: employed Travel in the last 8 weeks: None household members: spouse housing: house current occupation: [employer] Have you lived/traveled outside [place] in past 30 days?: No Contact w/someone who lives/traveled outside US past 30 days?: No Exposure to someone with infectious disease in past 14 days?: No Do you have a fever (greater than 100.4 F or 38 C)?: No Have you tested positive for COVID-19: No Exposed to someone with COVID-19 in past 14 days?: No Do you have a sore throat?: No Do you have a cough?: No Do you have any weakness?: Yes Do you have any diarrhea?: No Are you experiencing any unusual bleeding?: No Do you have any muscle aches/pain?: No Do you have any abdominal pain?: No Are you experiencing loss of taste or smell?: No Other Medical History Have you received the Flu Vaccine for this season: No Have you received the Pneumonia Vaccine: No ROS Obtained: Yes Systems reviewed as appropriate & no additional complaints except as documented Physical Exam General General appearance: alert and in no apparent distress Head Head exam: atraumatic and normocephalic Eye Eye exam: Present PERRL ENT ENT exam: Present mucous membranes moist Neck Neck exam: Present normal inspection Chest Chest inspection: Present normal inspection and symmetric chest wall rise Respiratory Respiratory exam: Present normal lung sounds bilaterally; Absent respiratory distress Cardiovascular Cardiovascular exam: Present regular rate and normal rhythm Abdominal Exam Abdominal exam: Present soft; Absent tenderness Extremities Exam Extremities exam: Present normal inspection and other (no edema, palpable DP pulse b/l. cool toes b/l/ no rash ) Back Exam Back exam: Present normal inspection and other; Absent tenderness Neurological Exam Neurological exam: Present alert; Absent motor sensory deficit Psychiatric Psychiatric exam: Present normal affect Skin Skin exam: Present warm and dry Medical Decision Making Medical Records Screening: Per USPSTF and CDC recommendations, given the prevalence of disease in our region, it is our hospital?s policy to screen for HIV and viral Hepatitis for all patients aged 18 and over and those with ongoing risk factors. Ted Inquiry Pt receiving controlled substance: No Vital Signs: 09/28/24 10:36 09/28/24 10:40 09/28/24 10:45 Temperature 98.1 F Temperature Source Oral Pulse Rate 63 63 Pulse Rate [Left] 62 Respiratory Rate 22 18 Blood Pressure 126/65 126/65 Blood Pressure [Right Arm] 126/65 Blood Pressure Mean [Right Arm] 85 Blood Pressure Source [Right Arm] Automatic Cuff Blood Pressure Position [Right Arm] Sitting 02 Sat by Pulse Oximetry 97 97 95 Oxygen Delivery Method Room Air 09/28/24 12:02 Temperature Temperature Source Pulse Rate 65 Pulse Rate [Left] Respiratory Rate Blood Pressure 126/53 L Blood Pressure [Right Arm] Blood Pressure Mean [Right Arm] Blood Pressure Source [Right Arm] Blood Pressure Position [Right Arm] 02 Sat by Pulse Oximetry 97 Oxygen Delivery Method Lab Data Lab Results 09/28/24 10:47: WBC 6.4, RBC 4.21 L, Hgb 12.8 L, Hct 38.7 L, MCV 91.9, MCH 30.4, MCHC 33.1, RDW 12.3, Plt Count 200, MPV 10.3, Neut % (Auto) 67.1, Lymph % (Auto) 24.9, [place] % (Auto) 5.8, Eos % (Auto) 1.4, Baso % (Auto) 0.5, Neut # (Auto) 4.3, Lymph # (Auto) 1.6, [place] # (Auto) 0.4, Eos # (Auto) 0.1, Baso # (Auto) 0.0, Sodium 139, Potassium 4.8, Chloride 100, Carbon Dioxide 27, Anion Gap 16.8 H, BUN 40 H, Creatinine 0.90, Estimated Creat Clear 98, Estimated GFR 83, Est GFR ( Amer) 101, Glucose 131 H, Calcium 9.6, Total Bilirubin 1.1, AST 50, ALT 47, Alkaline Phosphatase 69, Total Protein 7.4, Albumin 4.9, Globulin 2.5, Albumin/Globulin Ratio 2.0 H 09/28/24 10:47 09/28/24 10:47 Orders (Tests/Meds): ORDERS Category Date Time Status CT lumbar spine wo con Stat Cat Scan 09/28/24 10:54 Completed CBC w/Auto Diff [Complete Blood Count Auto Diff] Stat Lab 09/28/24 10:47 Completed CMP [Comprehensive Metabolic Panel] Stat Lab 09/28/24 10:47 Completed HIV Combo Stat Lab 09/28/24 10:47 Received Hepatitis C Ab Qual. W/ RFX Stat Lab 09/28/24 10:47 Received US Art. Lower Ext Rest (LOIS) Routine Ultrasound 09/28/24 10:54 Completed Medical Decision Narrative: In summary, patient is a 69-year-old male with past equivalence described above who represents the emergency department for evaluation of intermittent weakness of his lower extremity up upon ambulating. Patient is hemodynamically stable and no toxic pain upon arrival, afebrile at rest, he has a nonfocal neurologic exam, palpable pulses in his feet bilaterally however, his distal digits are cool, it is cold outside so blanket will be placed over his legs. I don?t Have any concern for dissection given no chest pain no abdominal pain and palpable dorsal pedal pulses. His history and physical is consistent with vascular disease with clarification upon ambulation. He does not have any symptoms at rest. Given history of chronic lumbar problems with weakness of his lower extremities screening for critical compressive symptoms will be conducted with CT lumbar spine. Right lower extremity TBI's consistent with peripheral vascular disease. CT shows advanced diffuse degenerative changes multiple level canal stenosis and neuroforaminal narrowing most severe at L3/L4/L4/L5. Ultimately it may be a combination of both of the symptoms and I discussed this with the patient. Repeat evaluation patient has improved circulation to his feet after a warm blanket was placed over top of them. Patient was amatory at bedside. Given that he does not have any changes consistent with acute spinal cord compression he is appropriate for outpatient management at this time he already has an appointment with spinal surgery and a couple of weeks which can further evaluate how much of his lumbar spine is contributing to this picture and he will be referred to cardiology for management of his peripheral vascular disease. Patient was given multiple return precautions and verbalized understanding. Critical Care Critical Care Time Critical Care Time: No
--- NOTE | 2024-09-28 10:54 | US_ITS ---
FINAL REPORT CLINICAL HISTORY: concern for claudication DM WEAKNESS IN LEGS COMPARISON: None FINDINGS: LOWER EXTREMITY SEGMENTAL PRESSURE MEASUREMENTS FINDINGS: Pressure indices are as follows: RIGHT LOWER EXTREMITY: Thigh: 0.94 Calf: 1.05 Ankle, posterior tibial artery: 1.05 Ankle, dorsalis pedis: 1.04 Toe: 0.69 LOIS: 1.05 Comments: Within normal limits LEFT LOWER EXTREMITY: Thigh: 1.01 Calf: 1.11 Ankle, posterior tibial artery: 1.11 Ankle, dorsalis pedis: 1.03 Toe: 0.57 LOIS: 1.11 Comments: Within normal limits IMPRESSION: No evidence of peripheral vascular disease in the bilateral lower extremities. Reviewed, Interpreted and Dictated by Helen Sahu MD Transcribed by Yu Dowling Authenticated and [facility]
--- NOTE | 2024-09-28 10:54 | CT_ITS ---
FINAL REPORT CLINICAL HISTORY: numbness ble COMPARISON: None FINDINGS: CT LUMBAR SPINE TECHNIQUE: Thin section noncontrast axial CT with sagittal reconstructions This study was performed with techniques to keep radiation doses as low as reasonably achievable, (ALARA). Individualized dose reduction techniques using automated exposure control or adjustment of mA and/or kV according to the patient's size were employed. FINDINGS: No fracture is present. Alignment is normal. T11-T12: Endplate spurring is present along with an annular bulge, and moderate central canal stenosis. T12-L1: A minimal annular bulge and facet arthropathy is present without evidence of canal stenosis. L1-L2: A mild annular bulge and facet arthropathy is present without central canal stenosis. L2-L3: 8 moderate annular bulge and moderate facet arthropathy is present, with mild central canal stenosis and moderate bilateral neural foraminal narrowing. L3-L4: A large annular bulge is present with endplate spurring. There is moderate facet arthropathy, severe central canal stenosis, and severe bilateral neural foraminal narrowing. L4-L5: A large annular bulge is present with ligamentum flavum hypertrophy, severe central canal stenosis and severe bilateral neural foraminal narrowing. L5-S1: A mild annular bulge is present with moderate facet arthropathy, mild central canal stenosis and severe bilateral neural foraminal narrowing. IMPRESSION: Advanced diffuse degenerative changes present in the lumbar spine with multilevel canal stenosis and neural foraminal narrowing, most severe at the L3-4 and L4-5 levels. This study was performed using automated techniques to achieve radiation exposure as low as reasonably achievable Reviewed, Interpreted and Dictated by Helen Sahu MD Transcribed by Alona Hernández Authenticated and . [facility]
[2024-09-28 11:00] LABS: Basophils % 0.5 % (0.1-2.0); Eosinophils # 0.1 K/mm3 (0.0-0.4); Eosinophils % 1.4 % (0.1-12.0); Hematocrit 38.7 % (42.0-52.0); Hemoglobin 12.8 g/dL (14.1-18.0); Lymphocytes # 1.6 K/mm3 (0.7-4.5); Lymphocytes % 24.9 % (10-50); Mean Corpuscular HGB Conc 33.1 g/dL (31.8-35.4); Mean Corpuscular Hemoglobin 30.4 pg (27.0-31.2); Mean Corpuscular Volume 91.9 fl (80-94); Mean Platelet Volume 10.3 fl (7.4-10.4); Monocytes # 0.4 K/mm3 (0.1-1.0); Monocytes % 5.8 % (1.7-9.3); Neutrophils # 4.3 K/mm3 (1.8-7.8); Neutrophils % 67.1 % (37.0-80.0); Platelet Count 200 K/mm3 (142-424); Red Blood Count 4.21 M/mm3 (4.60-6.20); Red Cell Distribution Width 12.3 % (11.5-17.5); White Blood Count 6.4 K/mm3 (4.8-10.8)
[2024-09-28 11:08] LABS: Alanine Aminotransferase 47 U/L (12-78); Albumin Level 4.9 g/dl (3.5-5.0); Alkaline Phosphatase 69 U/L (38-126); Anion Gap 16.8 mEq/L (5-15); Aspartate Amino Transferase 50 U/L (17-59); Bilirubin,Total 1.1 mg/dl (0.2-1.3); Blood Urea Nitrogen 40 mg/dl (9-20); Calcium 9.6 mg/dl (8.4-10.2); Carbon Dioxide 27 mmol/L (22.0-30.0); Chloride 100 mmol/L (98-107); Creatinine Clearance Estimated 98 mL/min (50-200); Estimated Glomerular Filt Rate 83 ml/min (>60); GFR (African American) 101 ML/MIN (>60); Globulin 2.5 g/dL (1.3-3.2); Glucose 131 mg/dl (74-100); Potassium 4.8 mmoL/L (3.5-5.1); Sodium 139 mmol/L (136-145); Total Protein,Serum 7.4 g/dl (6.3-8.2)
[2024-09-28 12:02] VITALS: BP 126/53; PULSE 65; O2SAT 97
--- NOTE | 2024-09-28 12:07 | PC.NURSE ---
I rounded on the pt. He is resting with his eyes closed. call saucedo in reach.
[2024-09-28 12:12] LABS: HIV Combo NEGATIVE (Negative)
[2024-09-28 12:20] LABS: Hepatitis C Ab Qual. W/ RFX NEGATIVE (Negative)
[2024-09-28 12:25] VITALS: BP 112/72; PULSE 61; RESP 18; TEMP 36.7; O2SAT 97
[2024-09-28 12:30] VITALS: BP 112/55; PULSE 62; O2SAT 99
== END 2024-09-28 12:50 | disposition home or self-care (01) ==
PROVIDERS: Emergency Provider Emergency Medicine; PCP Family Medicine
DX: I73.9 Peripheral vascular disease, unspecified (principal); M51.360 Other intervertebral disc degeneration, lumbar region with discogenic back pain only; R53.1 Weakness; R20.0 Anesthesia of skin; M51.361 Other intervertebral disc degeneration, lumbar region with lower extremity pain only; I25.10 Atherosclerotic heart disease of native coronary artery without angina pectoris; I10 Essential (primary) hypertension; E11.9 Type 2 diabetes mellitus without complications; Z79.84 Long term (current) use of oral hypoglycemic drugs
CPT/HCPCS: 72131; 80053; 85025; 86803; 87389; 93923; 99284

== ENCOUNTER 2024-10-16 14:18 | Outpatient (CLI) | payer MEDICARE, SELFPAY ==
--- NOTE | 2024-10-16 14:19 | CT_ITS ---
FINAL REPORT CLINICAL HISTORY: leg pain, low back pain patient states hes having surgery tuesday on his back. FINDINGS: Post contrast axial imaging of the aorta and bilateral lower extremity was obtained and reviewed.This study was performed with techniques to keep radiation doses as low as reasonably achievable (ALARA). Individualized dose reduction techniques using automated exposure control or adjustment of mA and/or kV according to the patient''s size were employed. There is no evidence of aortic aneurysm. There is no evidence of aortic stenosis. The celiac axis, superior mesenteric artery and inferior mesenteric artery are patent without stenosis. There is no evidence of renal artery stenosis. The iliac arteries are unremarkable, without stenosis. The internal iliac arteries are patent. Right: The right common femoral artery, deep femoral artery and superficial femoral artery are all patent, without stenosis. There is no stenosis of the popliteal artery. The anterior and posterior tibial and peroneal arteries are patent to the lower leg. The anterior and posterior tibial arteries are patent to the foot. Left: The left common femoral artery, deep femoral artery and superficial femoral artery are all patent, without stenosis. There is no stenosis of the popliteal artery. The anterior and posterior tibial and peroneal arteries are patent to the lower leg. The anterior and posterior tibial arteries are patent to the foot. Review of the remaining abdomen and pelvis demonstrates no evidence of mass or adenopathy. Bowel is unremarkable. There is no ascites. The appendix is normal. Prostate is unremarkable. There are small bilateral inguinal hernias containing fat. There is no fluid collection or acute inflammatory process. IMPRESSION: No evidence of stenosis or occlusion. No acute process. Reviewed, Interpreted and Dictated by Helen Sahu MD Transcribed by Mary Elaine Authenticated and [facility]
[2024-10-16] MEDS: 0.9 % SODIUM CHLORIDE 50 ML VIAL 100 ML IV (15:02)
[2024-10-16] MEDS: SODIUM CHLORIDE 0.9% 10ML SYR (RAD ONLY) 10 ML IV (15:02)
[2024-10-16] MEDS: IOPAMIDOL-370 (76%);100ML BOTTLE 120 ML IV (15:02)
== END 2024-10-16 23:59 | disposition home or self-care (01) ==
LOC: RAD 14:19
PROVIDERS: PCP Family Medicine; Visit Provider Nurse Practitioner
DX: I70.213 Atherosclerosis of native arteries of extremities with intermittent claudication, bilateral legs (principal)
CPT/HCPCS: 75635; Q9967

== ENCOUNTER 2024-11-11 11:50 | Emergency (ER) | payer MEDICARE, OTHER, SELFPAY ==
[2024-11-11] VITALS (9 sets, daily range): BP systolic 144–184; BP diastolic 89–115; PULSE 80–102; RESP 18–20; TEMP 37.1; O2SAT 94–100; BMI 32.6
--- NOTE | 2024-11-11 12:03 | HMH.EDGENADL ---
Discharge Plan Disposition Patient Disposition: Xfer SNF Condition: Good Prescriptions Prescriptions: New ondansetron 4 mg tablet,disintegrating 4 mg PO QID PRN (Reason: nausea and vomiting) Qty: 10 0RF No Action metformin 500 mg tablet extended release 24 hr 500 mg PO metoprolol succinate 200 mg tablet extended release 24 hr 200 mg PO ibuprofen 800 mg tablet 800 mg PO mupirocin 2 % ointment 1 applic TOPICAL BID Qty: 15 0RF gabapentin 300 mg capsule 300 mg PO DAILY aspirin 81 MG tablet,chewable 81 mg PO DAILY ergocalciferol (vitamin D2) 50,000 UNIT capsule 50,000 units PO WEEKLY Rx Instructions: take every tuesday atorvastatin 40 MG tablet 40 mg PO HS metoprolol succinate 200 MG tablet extended release 24 hr 200 mg PO DAILY metformin 500 MG tablet extended release 24 hr 500 mg PO BID ondansetron 4 MG tablet,disintegrating 4 mg PO DAILYP PRN (Reason: Nausea) Qty: 12 0RF irbesartan-hydrochlorothiazide 1 EACH tablet 1 tab PO DAILY Rx Instructions: 300/12.5MG atorvastatin 80 MG tablet 80 mg PO DAILY Referrals Follow up/Referrals: Elías Ramirez MD [Primary Care Provider] - See instructions Activity Restrictions/Add. Instructions Additional Instructions/Restrictions: I have sent Zofran into your pharmacy to help with nausea. I do not recommend antidiarrheals until you are able to provide a stool sample. If you have continued new or worsening signs or symptoms follow-up with your PCP return to the ER as needed. Clinical Impressions Clinical Impression: Nausea vomiting and diarrhea Instructions Patient Instructions: DI for Diarrhea and Traveler's Diarrhea -- Adult, DI for Diarrhea and Traveler's Diarrhea -- Child, DI for Nausea -- Adult, DI for Nausea -- Child Print Language Print Language: Russian Discharge ED Provider: Echo Ocampo General Adult HPI <VELVET Cooper - Last Filed: 11/11/24 15:00> General Chief complaint: Nausea/Vomiting/Diarrhea Stated complaint: Nausea, dehydrated, diarr. Time Seen by Provider: 11/11/24 12:03 Mode of Arrival: Ambulatory Source of Information: Patient Description of Symptoms (Recalled from ER Triage Doc. by RN): Patient presents to ED with c/o of nausea, vomiting, and diarrhea since . Patient states he is currently at [facility] for therapy for recent back surgery. Patient reports no pain just unable to keep fluids down. History of Present Illness HPI narrative: Patient presents for evaluation of intractable diarrhea. Patient recently had back surgery is currently in acute rehab. Since he has had greater than 10 watery bowel movements a day and now is unable to keep anything down. He reports some abdominal pain but no focal tenderness no rebound or guarding or rigidity. He has not noticed any hemoptysis hematochezia melena hematemesis hematuria. Related Data Home Medications ?Medication ?Instructions ?Recorded ?Confirmed atorvastatin 80 mg tablet 80 mg PO DAILY Cholesterol 09/06/19 10/01/24 aspirin 81 mg chewable tablet 81 mg PO DAILY heart health 09/09/20 10/01/24 ergocalciferol (vitamin D2) 1,250 50,000 units PO WEEKLY vitamin d 09/09/20 10/01/24 mcg (50,000 unit) capsule supplement atorvastatin 40 mg tablet 40 mg PO HS Cholesterol 04/18/21 09/28/24 metformin 500 mg tablet,extended 500 mg PO BID Diabetes 04/18/21 09/28/24 release 24 hr metoprolol succinate 200 mg 200 mg PO DAILY Hypertension 04/18/21 09/28/24 tablet,extended release 24 hr irbesartan 300 1 tab PO DAILY HYPERTENSION;FLUID 05/22/21 10/01/24 mg-hydrochlorothiazide 12.5 mg RETENTION tablet ibuprofen 800 mg tablet 800 mg PO 10/12/21 10/01/24 metformin 500 mg tablet,extended 500 mg PO 10/12/21 10/01/24 release 24 hr metoprolol succinate 200 mg 200 mg PO 10/12/21 10/01/24 tablet,extended release 24 hr gabapentin 300 mg capsule 300 mg PO DAILY 10/01/24 10/01/24 Previous Rx's ?Medication ?Instructions ?Recorded ondansetron 4 mg disintegrating 4 mg PO DAILYP PRN Nausea #12 tabs 05/18/21 tablet mupirocin 2 % topical ointment 1 applic topical BID #15 grams 10/12/21 ondansetron 4 mg disintegrating 4 mg PO QID PRN nausea and 11/11/24 tablet vomiting #10 tabs Allergies Allergy/AdvReac Type Severity Reaction Status Date / Time No Known Allergies Allergy Verified 10/01/24 13:31 PFS <VELVET Cooper - Last Filed: 11/11/24 15:00> [facility] Disclaimer: The information contained in this section may have been updated after the patient was seen, as this information can be updated by other users. Medical History (Updated 11/11/24 @ 15:00 by VELVET Cooper) PAD (peripheral artery disease) Weakness of both legs Surgical History (System 10/01/24 @ 13:31 by Lida Long) History of right knee joint replacement Social History (System 10/01/24 @ 13:31 by Lida Long) Smoking Status: Never smoker alcohol intake: never current occupational status: employed Travel in the last 8 weeks: None household members: spouse housing: house current occupation: [employer] caffeine: No Have you lived/traveled outside [place] in past 30 days?: No Contact w/someone who lives/traveled outside US past 30 days?: No Exposure to someone with infectious disease in past 14 days?: No Do you have a fever (greater than 100.4 F or 38 C)?: No Have you tested positive for COVID-19: No Exposed to someone with COVID-19 in past 14 days?: No Do you have a sore throat?: No Do you have a cough?: No Do you have any weakness?: Yes Do you have any diarrhea?: Yes Are you experiencing any unusual bleeding?: No Do you have any muscle aches/pain?: No Do you have any abdominal pain?: No Are you experiencing loss of taste or smell?: No Other Medical History Have you received the Flu Vaccine for this season: No Have you received the Pneumonia Vaccine: No <VELVET Cooper - Last Filed: 11/11/24 15:00> ROS Obtained: Yes Systems reviewed as appropriate & no additional complaints except as documented Physical Exam <VELVET Cooper - Last Filed: 11/11/24 15:00> General General appearance: alert and in no apparent distress Respiratory Respiratory exam: Present normal lung sounds bilaterally Cardiovascular Cardiovascular exam: Present regular rate Neurological Exam Neurological exam: Present alert and oriented X3 Medical Decision Making <VELVET Cooper - Last Filed: 11/11/24 15:00> Medical Records Medical records reviewed: Yes I reviewed the patient's medical records. Screening: Per USPSTF and CDC recommendations, given the prevalence of disease in our region, it is our hospital?s policy to screen for HIV and viral Hepatitis for all patients aged 18 and over and those with ongoing risk factors. Ted Inquiry Pt receiving controlled substance: No Vital Signs: 11/11/24 11:56 11/11/24 11:59 11/11/24 12:02 Temperature 98.7 F Temperature Source Oral Pulse Rate 92 H 92 H Pulse Rate [Right Brachial] 98 H Respiratory Rate 20 Blood Pressure 184/110 H 158/103 H Blood Pressure [Right Arm] 158/103 H Blood Pressure Mean [Right Arm] 121 Blood Pressure Source Blood Pressure Source [Right Arm] Automatic Cuff Blood Pressure Position Blood Pressure Position [Right Arm] Supine 02 Sat by Pulse Oximetry 98 98 100 Oxygen Delivery Method Room Air Room Air Room Air 11/11/24 12:31 11/11/24 13:00 11/11/24 13:26 Temperature Temperature Source Pulse Rate 80 102 H 87 Pulse Rate [Right Brachial] Respiratory Rate Blood Pressure 163/96 H 168/115 H Blood Pressure [Right Arm] Blood Pressure Mean [Right Arm] Blood Pressure Source Blood Pressure Source [Right Arm] Blood Pressure Position Blood Pressure Position [Right Arm] 02 Sat by Pulse Oximetry 97 99 94 L Oxygen Delivery Method Room Air Room Air 11/11/24 13:30 11/11/24 13:37 11/11/24 15:03 Temperature 98.8 F Temperature Source Oral Pulse Rate 86 87 84 Pulse Rate [Right Brachial] Respiratory Rate 18 Blood Pressure 167/89 H 144/100 H 144/95 H Blood Pressure [Right Arm] Blood Pressure Mean [Right Arm] Blood Pressure Source Automatic Cuff Blood Pressure Source [Right Arm] Blood Pressure Position Supine Blood Pressure Position [Right Arm] 02 Sat by Pulse Oximetry 98 100 Oxygen Delivery Method Room Air Room Air Lab Data Lab results reviewed: Yes I reviewed the patient's lab results. Lab Results 11/11/24 12:02: WBC 6.1, RBC 4.18 L, Hgb 12.6 L, Hct 37.1 L, MCV 88.8, MCH 30.1, MCHC 34.0, RDW 12.4, Plt Count 410, MPV 9.0, Neut % (Auto) 62.7, Lymph % (Auto) 25.6, [place] % (Auto) 10.1 H, Eos % (Auto) 0.7, Baso % (Auto) 0.7, Neut # (Auto) 3.9, Lymph # (Auto) 1.6, [place] # (Auto) 0.6, Eos # (Auto) 0.0, Baso # (Auto) 0.0, Sodium 136, Potassium 3.9, Chloride 97 L, Carbon Dioxide 27, Anion Gap 15.9 H, BUN 24 H, Creatinine 0.80, Estimated Creat Clear 93, Estimated GFR 95, Est GFR ( Amer) 115, Glucose 167 H, Calcium 10.2, Magnesium 1.6, Total Bilirubin 0.8, AST 37, ALT 54, Alkaline Phosphatase 136 H, Total Protein 7.5, Albumin 4.3, Globulin 3.2, Albumin/Globulin Ratio 1.3, Procalcitonin 0.162, HCV Ab CHANTAL w/Rflx PCR Qn Negative, HIV Ag/Ab Combo Qual Negative 11/11/24 13:43: Urine Color Yellow, Urine Appearance Clear, Urine pH 7.0, Ur Specific [place] 1.010, Urine Protein Negative, Urine Glucose (UA) Negative, Urine Ketones Negative, Urine Blood Negative, Urine Nitrate Negative, Urine Bilirubin Negative, Urine Urobilinogen 0.2, Ur Leukocyte Esterase Trace, Urine RBC None, Urine WBC 5-10, Ur Squamous Epith Cells Occasional, Urine Bacteria Trace 11/11/24 12:02 11/11/24 12:02 Orders (Tests/Meds): ED MEDICATIONS Discontinued Medications Generic Name Dose Route Start Last Admin Trade Name Freq PRN Reason Stop Dose Admin Sodium Chloride 1,000 mls @ 999 mls/hr 11/11/24 12:08 11/11/24 12:15 Sod Chlor 0.9% 1000ml Bag IV 11/11/24 13:08 999 mls/hr .Q1H1M ONE Administration Iopamidol 75 ml 11/11/24 13:19 11/11/24 13:21 Iopamidol-370 (76%);100ml Bottle IV 11/11/24 13:20 75 ml ONCE ONE Administration Ondansetron HCl 4 mg 11/11/24 12:08 11/11/24 12:15 Ondansetron 4mg/2ml Vial IV 11/11/24 12:09 4 mg ONCE ONE Administration Sodium Chloride 10 ml 11/11/24 13:19 11/11/24 13:21 Sodium Chloride 0.9% 10ml Syr (Rad Only) IV 11/11/24 13:20 10 ml ONCE ONE Administration ORDERS Category Date Time Status CT abdomen pelvis w con Stat Cat Scan 11/11/24 12:08 Completed CBC w/Auto Diff [Complete Blood Count Auto Diff] Stat Lab 11/11/24 12:02 Completed CMP [Comprehensive Metabolic Panel] Stat Lab 11/11/24 12:02 Completed HIV Combo Stat Lab 11/11/24 12:02 Completed Hepatitis C Ab Qual. W/ RFX Stat Lab 11/11/24 12:02 Completed Magnesium Stat Lab 11/11/24 12:02 Completed Procalcitonin Stat Lab 11/11/24 12:02 Completed UA [Urinalysis and Microscopic] Stat Lab 11/11/24 13:43 Completed Medical Decision Narrative: In summary patient is a 69-year-old male who presents to the emergency department for evaluation of diarrhea and abdominal pain. Patient is normotensive 158/103 with a heart rate of 98 normal sinus rhythm on the bedside monitor breathing 20 times a minute satting at 98% room air upon arrival, afebrile at 98.7. Physical exam is remarkable for clear breath sounds with no increased work of breathing accessory muscle use or adventitious sounds, abdomen is soft but diffusely mildly tender to palpation with hyperactive bowel sounds without rebound or guarding or rigidity.. Differential diagnosis includes ileus versus gastroenteritis versus infectious diarrhea. Initial workup will be conducted with hematologic labs CT scan abdomen pelvis urinalysis stool culture if able. Initial interventions include fluid bolus and Zofran. Initial workup reviewed by me and his hematologic labs show white count of 6.1 H&H 12.6 and 37.1 respectively absolute neutrophil count 3.9 the remainder of his hematologic labs are nonactionable urinalysis is bland however patient was unable to provide a stool sample. Upon repeat evaluation patient reports symptomatic improvement and is now tolerating p.o. Given this I had a shared decision-making discussion with the patient regarding his symptoms REDDY and whether or not he wanted to stay to was able give a stool sample or as an outpatient with collection supplies an outpatient order and via patient directed decision making and discharge he feels comfortable going home back to the [place] [facility] with the outpatient order. Given this patient is appropriate for discharge with a prescription for Zofran sent to his pharmacy and strict return precautions. <Echo Ocampo MD - Last Filed: 11/11/24 15:41> Vital Signs: 11/11/24 11:56 11/11/24 11:59 11/11/24 12:02 Temperature 98.7 F Temperature Source Oral Pulse Rate 92 H 92 H Pulse Rate [Right Brachial] 98 H Respiratory Rate 20 Blood Pressure 184/110 H 158/103 H Blood Pressure [Right Arm] 158/103 H Blood Pressure Mean [Right Arm] 121 Blood Pressure Source Blood Pressure Source [Right Arm] Automatic Cuff Blood Pressure Position Blood Pressure Position [Right Arm] Supine 02 Sat by Pulse Oximetry 98 98 100 Oxygen Delivery Method Room Air Room Air Room Air 11/11/24 12:31 11/11/24 13:00 11/11/24 13:26 Temperature Temperature Source Pulse Rate 80 102 H 87 Pulse Rate [Right Brachial] Respiratory Rate Blood Pressure 163/96 H 168/115 H Blood Pressure [Right Arm] Blood Pressure Mean [Right Arm] Blood Pressure Source Blood Pressure Source [Right Arm] Blood Pressure Position Blood Pressure Position [Right Arm] 02 Sat by Pulse Oximetry 97 99 94 L Oxygen Delivery Method Room Air Room Air 11/11/24 13:30 11/11/24 13:37 11/11/24 15:03 Temperature 98.8 F Temperature Source Oral Pulse Rate 86 87 84 Pulse Rate [Right Brachial] Respiratory Rate 18 Blood Pressure 167/89 H 144/100 H 144/95 H Blood Pressure [Right Arm] Blood Pressure Mean [Right Arm] Blood Pressure Source Automatic Cuff Blood Pressure Source [Right Arm] Blood Pressure Position Supine Blood Pressure Position [Right Arm] 02 Sat by Pulse Oximetry 98 100 Oxygen Delivery Method Room Air Room Air Lab Data Lab Results 11/11/24 12:02: WBC 6.1, RBC 4.18 L, Hgb 12.6 L, Hct 37.1 L, MCV 88.8, MCH 30.1, MCHC 34.0, RDW 12.4, Plt Count 410, MPV 9.0, Neut % (Auto) 62.7, Lymph % (Auto) 25.6, [place] % (Auto) 10.1 H, Eos % (Auto) 0.7, Baso % (Auto) 0.7, Neut # (Auto) 3.9, Lymph # (Auto) 1.6, [place] # (Auto) 0.6, Eos # (Auto) 0.0, Baso # (Auto) 0.0, Sodium 136, Potassium 3.9, Chloride 97 L, Carbon Dioxide 27, Anion Gap 15.9 H, BUN 24 H, Creatinine 0.80, Estimated Creat Clear 93, Estimated GFR 95, Est GFR ( Amer) 115, Glucose 167 H, Calcium 10.2, Magnesium 1.6, Total Bilirubin 0.8, AST 37, ALT 54, Alkaline Phosphatase 136 H, Total Protein 7.5, Albumin 4.3, Globulin 3.2, Albumin/Globulin Ratio 1.3, Procalcitonin 0.162, HCV Ab CHANTAL w/Rflx PCR Qn Negative, HIV Ag/Ab Combo Qual Negative 11/11/24 13:43: Urine Color Yellow, Urine Appearance Clear, Urine pH 7.0, Ur Specific [place] 1.010, Urine Protein Negative, Urine Glucose (UA) Negative, Urine Ketones Negative, Urine Blood Negative, Urine Nitrate Negative, Urine Bilirubin Negative, Urine Urobilinogen 0.2, Ur Leukocyte Esterase Trace, Urine RBC None, Urine WBC 5-10, Ur Squamous Epith Cells Occasional, Urine Bacteria Trace Orders (Tests/Meds): ED MEDICATIONS Discontinued Medications Generic Name Dose Route Start Last Admin Trade Name Freq PRN Reason Stop Dose Admin Sodium Chloride 1,000 mls @ 999 mls/hr 11/11/24 12:08 11/11/24 12:15 Sod Chlor 0.9% 1000ml Bag IV 11/11/24 13:08 999 mls/hr .Q1H1M ONE Administration Iopamidol 75 ml 11/11/24 13:19 11/11/24 13:21 Iopamidol-370 (76%);100ml Bottle IV 11/11/24 13:20 75 ml ONCE ONE Administration Ondansetron HCl 4 mg 11/11/24 12:08 11/11/24 12:15 Ondansetron 4mg/2ml Vial IV 11/11/24 12:09 4 mg ONCE ONE Administration Sodium Chloride 10 ml 11/11/24 13:19 11/11/24 13:21 Sodium Chloride 0.9% 10ml Syr (Rad Only) IV 11/11/24 13:20 10 ml ONCE ONE Administration ORDERS Category Date Time Status CT abdomen pelvis w con Stat Cat Scan 11/11/24 12:08 Completed CBC w/Auto Diff [Complete Blood Count Auto Diff] Stat Lab 11/11/24 12:02 Completed CMP [Comprehensive Metabolic Panel] Stat Lab 11/11/24 12:02 Completed HIV Combo Stat Lab 11/11/24 12:02 Completed Hepatitis C Ab Qual. W/ RFX Stat Lab 11/11/24 12:02 Completed Magnesium Stat Lab 11/11/24 12:02 Completed Procalcitonin Stat Lab 11/11/24 12:02 Completed UA [Urinalysis and Microscopic] Stat Lab 11/11/24 13:43 Completed Medical Decision Narrative: In summary patient is a 69-year-old male who presents to the emergency department for evaluation of diarrhea and abdominal pain. Patient is normotensive 158/103 with a heart rate of 98 normal sinus rhythm on the bedside monitor breathing 20 times a minute satting at 98% room air upon arrival, afebrile at 98.7. Physical exam is remarkable for clear breath sounds with no increased work of breathing accessory muscle use or adventitious sounds, abdomen is soft but diffusely mildly tender to palpation with hyperactive bowel sounds without rebound or guarding or rigidity.. Differential diagnosis includes ileus versus gastroenteritis versus infectious diarrhea. Initial workup will be conducted with hematologic labs CT scan abdomen pelvis urinalysis stool culture if able. Initial interventions include fluid bolus and Zofran. Initial workup reviewed by me and his hematologic labs show white count of 6.1 H&H 12.6 and 37.1 respectively absolute neutrophil count 3.9 the remainder of his hematologic labs are nonactionable urinalysis is bland however patient was unable to provide a stool sample. Upon repeat evaluation patient reports symptomatic improvement and is now tolerating p.o. Given this I had a shared decision-making discussion with the patient regarding his symptoms REDDY and whether or not he wanted to stay to was able give a stool sample or as an outpatient with collection supplies an outpatient order and via patient directed decision making and discharge he feels comfortable going home back to the [place] [facility] with the outpatient order. Given this patient is appropriate for discharge with a prescription for Zofran sent to his pharmacy and strict return precautions. I was consulted by the [facility], and we discussed the complexity of problems being addressed. I approved the treatment and management plan for this patient's care in the emergency department, thus performing a substantial portion of the medical decision making. Echo Ocampo MD Critical Care <VELVET Cooper - Last Filed: 11/11/24 15:00> Critical Care Time Critical Care Time: No
--- NOTE | 2024-11-11 12:08 | CT_ITS ---
PROCEDURE INFORMATION: Exam: CT Abdomen And Pelvis With Contrast Exam date and time: 11/11/2024 1:20 PM Age: 69 years old Clinical indication: Abdominal pain; Additional info: Intractable diarrhea and abdominal pain TECHNIQUE: Imaging protocol: Computed tomography of the abdomen and pelvis with contrast. Radiation optimization: All CT scans at this facility use at least one of these dose optimization techniques: automated exposure control; mA and/or kV adjustment per patient size (includes targeted exams where dose is matched to clinical indication); or iterative reconstruction. Contrast material: ISOVUE; Contrast volume: 75 ml; Contrast route: IV; COMPARISON: CT ANGIO ABDOMEN/FEMORAL 10/16/2024 2:51 PM FINDINGS: Lungs: Visualized lung bases are clear. Coronary arteries: There are calcifications in the coronary arteries. Liver: There is diffuse fatty infiltration of the liver. Gallbladder and biliary ducts: Normal. No calcified stones. No ductal dilation. Pancreas: Normal. No ductal dilation. Spleen: Normal. No splenomegaly. Adrenal glands: Normal. No mass. Kidneys and ureters: Normal. No hydronephrosis. Stomach and bowel: Unremarkable. No obstruction. No mucosal thickening. Appendix: No evidence of appendicitis. Intraperitoneal space: Unremarkable. No free air. No significant fluid collection. Vasculature: There is mild atherosclerosis of the aorta without aneurysm.The visualized aortic branch vessels are patent. Lymph nodes: Unremarkable. No enlarged lymph nodes. Urinary bladder: Diffuse bladder wall thickening consistent with partial outlet obstruction. Reproductive: Prostatic hypertrophy. Bones/joints: Again noted discectomy and posterior fusion at L3-L4 and L4-L5 with associated posterior spinal decompression demonstrating satisfactory alignment. No acute or suspicious bony abnormality identified. Soft tissues: Unremarkable. IMPRESSION: 1. No acute process identified. 2. Prostatic hypertrophy. Recommend correlation with rectal digital exam and PSA. 3. Post-operative change as described.
[2024-11-11] MEDS: ONDANSETRON 4MG/2ML VIAL 4 MG IV (12:15)
[2024-11-11] MEDS: 0.9 % SODIUM CHLORIDE 1000ML 1,000 ML 999 ML IV (12:15)
[2024-11-11 12:22] LABS: Basophils % 0.7 % (0.1-2.0); Eosinophils % 0.7 % (0.1-12.0); Hematocrit 37.1 % (42.0-52.0); Hemoglobin 12.6 g/dL (14.1-18.0); Lymphocytes # 1.6 K/mm3 (0.7-4.5); Lymphocytes % 25.6 % (10-50); Mean Corpuscular Hemoglobin 30.1 pg (27.0-31.2); Mean Corpuscular Volume 88.8 fl (80-94); Monocytes # 0.6 K/mm3 (0.1-1.0); Monocytes % 10.1 % (1.7-9.3); Neutrophils # 3.9 K/mm3 (1.8-7.8); Neutrophils % 62.7 % (37.0-80.0); Platelet Count 410 K/mm3 (142-424); Red Blood Count 4.18 M/mm3 (4.60-6.20); Red Cell Distribution Width 12.4 % (11.5-17.5); White Blood Count 6.1 K/mm3 (4.8-10.8)
--- NOTE | 2024-11-11 12:23 | PC.NURSE ---
provided pt with urinal for urine sample. pt aware of need for ua and stool sample
[2024-11-11 12:43] LABS: Alanine Aminotransferase 54 U/L (12-78); Albumin Level 4.3 g/dl (3.5-5.0); Albumin/Globulin Ratio 1.3 (1.1-1.8); Alkaline Phosphatase 136 U/L (38-126); Anion Gap 15.9 mEq/L (5-15); Aspartate Amino Transferase 37 U/L (17-59); Bilirubin,Total 0.8 mg/dl (0.2-1.3); Blood Urea Nitrogen 24 mg/dl (9-20); Calcium 10.2 mg/dl (8.4-10.2); Carbon Dioxide 27 mmol/L (22.0-30.0); Chloride 97 mmol/L (98-107); Creatinine Clearance Estimated 93 mL/min (50-200); Estimated Glomerular Filt Rate 95 ml/min (>60); GFR (African American) 115 ML/MIN (>60); Globulin 3.2 g/dL (1.3-3.2); Glucose 167 mg/dl (74-100); Magnesium 1.6 mg/dl (1.6-2.3); Potassium 3.9 mmoL/L (3.5-5.1); Sodium 136 mmol/L (136-145); Total Protein,Serum 7.5 g/dl (6.3-8.2)
[2024-11-11] MEDS: SODIUM CHLORIDE 0.9% 10ML SYR (RAD ONLY) 10 ML IV (13:21)
[2024-11-11] MEDS: IOPAMIDOL-370 (76%);100ML BOTTLE 75 ML IV (13:21)
[2024-11-11 13:35] LABS: HIV Combo NEGATIVE (Negative)
[2024-11-11 13:45] LABS: Hepatitis C Ab Qual. W/ RFX NEGATIVE (Negative)
[2024-11-11 13:49] LABS: Microscopic, Urine URINE MICROSCOPIC (MICROSCOPIC)
[2024-11-11 13:53] LABS: Appearance,Urine CLEAR (Clear); Bilirubin,Urine Negative (Negative); Blood, Urine Negative (Negative); Color,Urine YELLOW (Yellow); Glucose,Urine (UA) Negative (Negative); Ketones,Urine Negative (Negative); Leukocyte Esterase,Urine TRACE (Negative); Nitrate,Urine Negative (Negative); Protein,Urine Negative (Negative); Urobilinogen,Urine 0.2 EU/dl (0.2)
[2024-11-11 14:33] LABS: Procalcitonin 0.162 ng/mL (0.0-2.0)
[2024-11-11 14:35] LABS: Bacteria,Urine Trace /lpf; Squamous Epithelial Cell,Urine Occasional #/hpf (0-5)
== END 2024-11-11 15:14 ==
PROVIDERS: Physician Assistant; Emergency Provider Student in an Organized Health Care Education/Training Program; PCP Family Medicine
DX: R11.2 Nausea with vomiting, unspecified (principal); R19.7 Diarrhea, unspecified; R63.8 Other symptoms and signs concerning food and fluid intake; R10.9 Unspecified abdominal pain; I73.9 Peripheral vascular disease, unspecified; M51.369 Other intervertebral disc degeneration, lumbar region without mention of lumbar back pain or lower extremity pain; E11.9 Type 2 diabetes mellitus without complications; I25.10 Atherosclerotic heart disease of native coronary artery without angina pectoris; E66.9 Obesity, unspecified; Z98.890 Other specified postprocedural states
CPT/HCPCS: 74177; 80053; 81001; 83735; 84145; 85025; 86803; 87389; 96361; 96374; 99285; J2405; J7030; Q9967

== ENCOUNTER 2024-12-10 08:00 | Outpatient (RCR) | payer MEDICARE, OTHER, SELFPAY ==
--- NOTE | 2024-11-29 16:51 | HMH.PTOPEV ---
PT Outpatient Evaluation Rehab PT Outpatient Evaluation Start: 11/29/24 13:41 Freq: Status: Active Protocol: Document 11/29/24 13:41 DOMENICO (Rec: 11/29/24 16:50 DOMENICO [id number]) E-signed By Charlotte Mendiola, PT Outpatient Therapy Subjective History Subjective History Pt is a 69 y/o male who presents to the initial PT evaluation s/p TLIF of L3-L5 performed on 10/21/24. Pt denies complications following surgery. Pt reports he continues to have restrictions of no bending, lifting (<5- 10lb), and twisting. Pt states he went to [facility] for rehab after back surgery from October 25 to the . Pt states he then went to [place] for rehab and was discharged on 11/13/24. Pt states he was supposed to have HHPT but was unable, states he has not had any therapy for 2 weeks. Pt reports he lives in a single story home with his with 3 steps with HR to enter. Pt states he uses a FWW for all ambulation due to leg weakness and altered balance. Pt reports prior to surgery both legs were numb for ~6 weeks, states numbness has mostly resolved since the surgery. Pt reports pain is minimal with only discomfort and stiffness noted with prolonged sitting. Pt states his L>R leg continues to be weak, he states his L leg is so weak it often gives out on him. Pt reports he fell last week due to his left leg giving out on him when placing all his weight on that leg while getting into his car. Pt reports his knee is still sore when he bends it back all the way, denies noted bruising or swelling of the knee. Pt denies other injuries from the fall. Pt reports difficulty getting in/out of the bath tub, getting in/out of the car, and getting up/ down from a chair without use of his arms due to LE weakness . Pt reports he returns to his surgeon next week. Pt denies having radiographs since the surgery, states he returns to his surgeon for his follow-up visit next week. Medical History: CAD, Type II Diabetes, Hypertension, Hyperlipidemia, Vitamin D Deficiency, Osteoarthritis, Erectile Dysfunction, Lumbar disc disease, Lumbar facet arthropathy, GERD New diagnosis of cancer in past 12 No months? Chief Complaint Pain,Gives out/Unstable, Weakness Symptom Type Ache,Dull Symptoms Relieved By Rest/Positioning Symptoms Aggravated By Standing,Physical Activity, Walking,Lifting Current Functional Limitations Lifting,Housework,Dressing, Standing,Squatting,Walking, Stairs,Balance,Bending/ Stooping Level of pain today (0-10) 0 Pain scale - at its best (0-10) 0 Pain scale - at its worst (0-10) 5 Lumbopelvic Eval Posture Lumbar Spine Posture Standing Position Flattened Assistive device Assistive Devices Rolling / Wheeled Walker Palapation tenderness bilateral Lumbar/Sacral Palpation Findings Tenderness Lumbar/Sacral Palpation Overall Comment 0-1/4 TTP of bilateral lumbar PS, gluteal mm Range of Motion Lumbar Spine ROM Reason Not Measured Orthopedic Precautions Manual Muscle Test Left Knee Extension Strength Grade 3+ Fair+ Knee Flexion Strength Grade 4- Good- Hip Flexion Strength Grade 3+ Fair+ Hip Abduction Strength Grade 4- Good- Hip Adduction Strength Grade 4- Good- Hip Extension Strength Grade 4- Good- Ankle Dorsiflexion Strength Grade 4- Good- Right Knee Extension Strength Grade 4 Good Knee Flexion Strength Grade 4 Good Hip Flexion Strength Grade 4 Good Hip Abduction Strength Grade 4 Good Hip Adduction Strength Grade 4 Good Hip Extension Strength Grade 4- Good- DTR Rt Patellar 1+ Lt Patellar 1+ Rt Gastroc/Soleus 1+ Lt Gastroc/Soleus 1+ Altered Sensation Bilateral Comment equal and intact to light touch sensation bilaterally Special Tests Sciatic Nerve Tension Test Negative Left,Negative Right Unilateral Straight Leg Raise (Lasegue) Negative Left,Negative Right Test Oswestry Index Section 1 Pain Intensity The pain comes and goes and is very mild Section 2 Personal Care (Washing,Dresing) unable to do some washing and dressing without help Section 3 Lifting I can only lift very light weights at most Section 4 Walking I cannot walk at all without increasing pain Section 5 Sitting I can sit in any chair for as long as I like Section 6 Standing I avoid standing because it increases the pain immediately Section 7 Sleeping I get no pain in bed Section 8 Social Life Pain has restricted my social life to my home Section 9 Traveling I get no pain when traveling Section 10 Changing Degreee of Pain My pain is neither getting better or worse Score and Risk Level Oswestry Sc 26 Oswestry Risk Level Severe Disability Outpatient Therapy Assessment Impairments Problems/Impairmments Palpation Tenderness,Impaired Range of Motion,Impaired Strength,Impaired Walking, Impaired Standing,Impaired Lifting,Impaired Household Care,Impaired Stair Climbing, Impaired Incline Stepping, Impaired Stepping on Uneven Surface,Impaired Squatting, Impaired Bending,Impaired Recreational Activities, Impaired Balance,Subjective C/ O Pain,Impaired Self Care/Self Management Prognosis Rehab Potential Good Clinical Impression Consistent with Diagnosis Yes Short Term Goals Number of Weeks 3 Improve Transfers Yes: report ability to transfer in/out of car without pain/difficulty Improve Gait Pattern without Assistive Yes: proper mechanics with LRD Device to decrease fall risk Improve Ability to Dress Self Yes: I to decrease burden of care Improve Ability to Shower/Bathe Self Yes: I to decrease burden of care Improve Self Care/Self Management Yes Patient to be Ind w/ HEP Yes [facility] Goals Number of Weeks 6 Increase Range of Motion Yes: Demonstrate lumbar AROM WFL Increase Strength Yes: Improve BLE MMT to 4-4+/5 grossly to assist with function Increase Ability to Walk Yes: 10-15' with LRD & p! 2-3/ 10 to assist with iADLs Improve Oswestry Score Yes: Improve score to at least 21 to improve overall QOL Decrease Subjective C/O Pain Yes: Improve pain at worst to 2-3/10 to improve overall QOL Outpatient Therapy Plan of Care Treatment Plan May Include Therapeutic Exercise Including Home Yes Exercise Program Manual Therapy Techniques Yes Neuromuscular Re-education Yes Therapeutic Activities to Return to Yes Previous Functional/Work Level Gait Training Yes Thermal Modalities Yes Electrical Stimulation Yes Ultrasound/Phonophoresis Yes Iontophoresis Yes Massage Yes Manual Lymphatic Drainage Yes Wound Care Yes Group Therapy for Medicare Yes Eval/Re-Eval Yes Frequency Times per week 2 Duration Number of Weeks 4-6 Addendums This patient is a candidate for social No or vocational rehab? Patient/Guardian verbally acknowledges Yes understanding of treatment program and consents to further treatment? Patient/Guardian verbally acknowledges Yes understanding of diagnosis, prognosis and goals for treatment? Eval Complexity PT Charges 36429 - Moderate Complexity Shoulder/Elbow Eval Shoulder Objective Measurements Elbow Objective Measurements PHYSICIAN CERTIFICATION: I certify the specified therapy services for Bernardo Kalie Feldmanand are required, authorized, and reviewed every 30 days.
== END 2024-12-10 23:59 | disposition home or self-care (01) ==
LOC: PT 08:00
PROVIDERS: Visit Provider Family Medicine
DX: Z98.1 Arthrodesis status (principal); M48.061 Spinal stenosis, lumbar region without neurogenic claudication
CPT/HCPCS: 97110; 97163; 97530

== ENCOUNTER 2025-01-11 14:00 | Outpatient (RCR) | payer MEDICARE, OTHER, SELFPAY ==
--- NOTE | 2024-12-28 12:13 | HMH.RHREAS ---
Rehab Reassessment Rehab OP Re-assessment Start: 12/13/24 13:58 Freq: Status: Active Protocol: Document 12/28/24 10:40 DOMENICO (Rec: 12/28/24 12:12 DOMENICO [id number]) E-signed By Charlotte Mendiola, PT Oswestry Index Section 1 Pain Intensity The pain comes and goes and is very mild Section 2 Personal Care (Washing,Dresing) increase the pain, but I manage not to change my way of doing it Section 3 Lifting I can only lift very light weights at most Section 4 Walking I have no pain when walking Section 5 Sitting I can sit in any chair for as long as I like Section 6 Standing I have some pain on standing, but it does not increase with time Section 7 Sleeping I get no pain in bed Section 8 Social Life Pain has no significant effect on my social life apart from limiting Section 9 Traveling I get no pain when traveling Section 10 Changing Degreee of Pain My pain fluctuates, but overall is definitely getting better Score and Risk Level Oswestry Sc 11 Oswestry Risk Level Mild Disability Rehab Re-assessment Subjective Subjective Pt reports he feels 30% improved since starting PT. Pt reports he feels that his L leg is a little stronger overall and seems to give way less with walking. Pt reports he continues to use a RW for all ambulation. Pt reports he is now able to perform lower body dressing independently but requires some assist with showering, states he has a fear of falling in the shower. Pt reports only minimal low back soreness rated 2-3/10 at worst. Pt denies numbness/ tingling or b/b dysfunction. Objective Objective Notes Gait: decrease WB on LLE with RW LLE MMT: hip flex 4-/5, hip abd 4/5, hip add 4/5, hip ext 4-/5, knee flex 4-/5, knee ext 4-/5, ankle DF 4+/5 RLE MMT: 4+/5 grossly Assessment Assessment Notes Pt has attended 7 PT treatment sessions consisting of aerobic exercise, lumbar mobility, LE/core strengthening, LE stretching, neural glides and HEP with good tolerance. Pt demonstrated improved OZ score, subjective report of pain and LE strength this date compared to the initial evaluation. Pt continues to require a RW for safe ambulation due to LLE weakness /instability and altered balance. Overall, the pt would continue to benefit from skilled PT to further improve strength, mobility, gait, balance/proprioception and functional activity performance/tolerance to improve overall QOL. Patient goals met ST/6 Goals Not Met gait, showering I, LTG Revised Goals n/a Plan Plan Continue POC. Incorporate gait and balance/proprioception training. Frequency of Therapy 2x/week Duration of therapy 4 more weeks Time and Billing Re-Eval Time 12 Re-Eval Billing Units 0 Charge for PT reassessment? No Charge for OT reassessment? No PHYSICIAN CERTIFICATION: I certify the specified therapy services for Bernardo Butler are required, authorized, and reviewed every 30 days.
== END 2025-01-11 23:59 | disposition home or self-care (01) ==
LOC: PT 14:00
PROVIDERS: Visit Provider Family Medicine
DX: M48.061 Spinal stenosis, lumbar region without neurogenic claudication (principal); Z98.1 Arthrodesis status
CPT/HCPCS: 97110; 97116; 97530

== ENCOUNTER 2025-02-07 14:00 | Outpatient (RCR) | payer MEDICARE, OTHER, SELFPAY ==
--- NOTE | 2025-01-22 15:19 | HMH.RHREAS ---
Rehab Reassessment Rehab OP Re-assessment Start: 01/15/25 14:07 Freq: Status: Active Protocol: Document 01/22/25 14:09 JANMARION (Rec: 01/22/25 15:19 JANMARION [id number]) E-signed By Charlotte Mendiola, PT Oswestry Index Section 1 Pain Intensity The pain is mild and does not vary much Section 2 Personal Care ( my way of washing or dressing even though it causes Washing,Dresing) some pain Section 3 Lifting I can only lift very light weights at most Section 4 Walking I have no pain when walking Section 5 Sitting I can sit in any chair for as long as I like Section 6 Standing I have some pain on standing, but it does not increase with time Section 7 Sleeping I get no pain in bed Section 8 Social Life My social life is normal and gives me no extra pain Section 9 Traveling I get some pain when traveling, but none of my usual forms of travel m Section 10 Changing Degreee of My pain is getting better Pain Score and Risk Level Oswestry Sc 9 Oswestry Risk Level Mild Disability Rehab Re-assessment Subjective Subjective Pt reports he feels 50-60% improved since starting PT. Pt reports he continues to have only mild low back pain /discomfort rated 4/10 on VAS with prolonged sedentary periods that improves with movement. Pt reports continued LLE weakness although states knee stability is improving. Pt states he has been performing ~25% household ambulation with a SPC and is using a RW for all other ambulation. Pt denies LOB or falls. Pt states he is still very cautious and guarded especially regarding his balance. Objective Objective Notes Gait: antalgic with decreased WB on LLE with SPC Lumbar AROM: 80 flex, 15 ext, 15LF LLE MMT: hip flex 4/5, hip abd 4/5, hip add 4/5, hip ext 4/5, knee flex 4/5, knee ext 4/5, ankle DF 4+/5 RLE MMT: 4+/5 grossly 5x sit to stand: 20 Assessment Assessment Notes Pt has attended 14 PT treatment sessions consisting of aerobic exercise, LE/core strengthening, LE stretching, balance/proprioception and gait training with good tolerance. Pt demonstrated improved gait with use of SPC, lumbar AROM, LE strength, and OZ score this date compared to the initial evaluation. Pt continues to report and demonstrate LLE strength deficits compared to the RLE with intermittent L knee instability and altered balance. Pt verbalizes hesitancy with transitioning from ambulating with a RW to a SPC due to this. Overall, the pt would continue to benefit from skilled PT to further improve subjective report of pain , LE strength, balance/proprioception and functional activity tolerance to improve overall QOL. Patient goals met ST/6 LT/ Goals Not Met p! at worst, walking endurance, 5x sit to stand Revised Goals Add LTG: perform 5x sit to stand 12 or less to decrease fall risk Plan Plan Continue POC Frequency of Therapy 2x/week Duration of therapy 4 more weeks Time and Billing Re-Eval Time 14 Re-Eval Billing 0 Units Charge for PT No reassessment? Charge for OT No reassessment? PHYSICIAN CERTIFICATION: I certify the specified therapy services for Bernardo Kalie Quintero Luke are required, authorized, and reviewed every 30 days.
== END 2025-02-07 23:59 | disposition home or self-care (01) ==
LOC: PT 14:00
PROVIDERS: Visit Provider Family Medicine
DX: M48.061 Spinal stenosis, lumbar region without neurogenic claudication (principal); Z98.1 Arthrodesis status
CPT/HCPCS: 97014; 97110; 97112; 97530; G0283

== ENCOUNTER 2025-02-19 09:00 | Outpatient (RCR) | payer MEDICARE, OTHER, SELFPAY ==
--- NOTE | 2025-02-19 09:55 | HMH.RHREAS ---
Rehab Reassessment Rehab OP Re-assessment Start: 02/14/25 14:09 Freq: Status: Active Protocol: Document 02/19/25 09:08 JANMARION (Rec: 02/19/25 09:55 DOMENICO [id number]) E-signed By Charlotte Mendiola PT Oswestry Index Section 1 Pain Intensity The pain comes and goes and is moderate Section 2 Personal Care ( my way of washing or dressing even though it causes Washing,Dresing) some pain Section 3 Lifting Pain prevents me from lifting weights off the floor Section 4 Walking I have no pain when walking Section 5 Sitting I can sit in my favorite chair for as long as I like Section 6 Standing I cannot stand more than 1/2 hour without increasing pain Section 7 Sleeping I get pain in bed, but it does not prevent me from sleeping well Section 8 Social Life Pain has no significant effect on my social life apart from limiting Section 9 Traveling I get some pain when traveling, but none of my usual forms of travel m Section 10 Changing Degreee of My pain seems to be getting better, but improvement is Pain slow Score and Risk Level Oswestry Sc 15 Oswestry Risk Level Moderate Disability Rehab Re-assessment Subjective Subjective Pt reports he feels 75% improved since starting PT. Pt reports he has been increasing his activity level overall which has increased the soreness in his lower back. Pt reports low back pain at worst as 3-4/10 on VAS, states this does improve with stretching. Pt reports he continues to use a SPC for most ambulation although performs some household ambulation without the cane. Pt denies LOB or falls. Pt states his left leg still feels weaker than his right but his knee is no longer giving way on him like it was before. Pt reports he returns to his surgeon in ~2 months for his next follow-up session. Objective Objective Notes Gait: antalgic with decreased WB on LLE with SPC Lumbar AROM: 80 flex, 15 ext, 15LF LLE MMT: hip flex 4/5, hip abd 4/5, hip add 4/5, hip ext 4/5, knee flex 4+/5, knee ext 4+/5, ankle DF 5/5 RLE MMT: 4+/5 grossly 5x sit to stand: 13 Assessment Progress Assessment Progressing as Expected Assessment Notes Pt has attended 21 PT treatment sessions consisting of aerobic exercise, LE/core strengthening, LE stretching, balance/proprioception and gait training with good tolerance. Pt demonstrated improved 5x sit to stand score and LLE strength this date compared to the previous reassessment. Pt demonstrated no change in gait, AROM, or subjective report of pain this date compared to the previous reassessment although significantly improved since the initial evaluation. Due to plateau of progress and pt meeting most PT goals , pt is most appropriate to discharge to [facility] at this time. Patient goals met LT/6 Goals Not Met p! at worst, 5x sit to stand Revised Goals n/a Plan Plan Discharge to [facility] Frequency of Therapy 0 Duration of therapy 0 Time and Billing Re-Eval Time 11 Re-Eval Billing 0 Units Charge for PT No reassessment? Charge for OT No reassessment? PHYSICIAN CERTIFICATION: I certify the specified therapy services for Bernardo Butler are required, authorized, and reviewed every 30 days.
== END 2025-02-19 23:59 | disposition home or self-care (01) ==
LOC: PT 09:00
PROVIDERS: Visit Provider Family Medicine
DX: M48.061 Spinal stenosis, lumbar region without neurogenic claudication (principal); Z98.1 Arthrodesis status
CPT/HCPCS: 97110; 97530